=== PATIENT | female | born 1935 | race Caucasian/White ===

== ENCOUNTER → 2016-06-27 | Outpatient (CLI) | payer BC ==
[~2016-06-27] MED LIST: CARV12.5 PO; GLC500 PO; HMLI SC; INSDGI SC; IRBE1TAB48 PO; LEVO88TA PO; SIMV40TA2 PO; TRAM-10 PO; WARF-246 PO
[2016-06-27 10:12] LABS: INR 1.8 (0.9-1.1); PROTHROMBIN TIME (PATIENT) 20.1 SECONDS (9.0-12.0)
[2016-06-27 10:18] LABS: ESTIMATED AVERAGE GLUCOSE 151 mg/dl; HA1C FLAG Normal (Normal)
[2016-06-27 10:21] LABS: BLOOD UREA NITROGEN 17 mg/dl (7-18); BUN/CREATININE RATIO 17.3 (10-20); CALCIUM 8.8 mg/dl (8.5-10.1); CARBON DIOXIDE 29 mmol/L (21-32); CHLORIDE 104 mmol/L (98-107); GLUCOSE 123 mg/dl (70-99); POTASSIUM 4.5 mmol/L (3.5-5.1); SODIUM 141 mmol/L (136-145)
== END ==
LOC: C.LABFOXMH 09:20
PROVIDERS: ATTEND Internal Medicine
DX: E01.8 Other iodine-deficiency related thyroid disorders and allied conditions (principal); E11.9 Type 2 diabetes mellitus without complications

== ENCOUNTER → 2016-07-25 | Outpatient (CLI) | payer BC ==
[2016-07-25 10:05] LABS: INR 2.2 (0.9-1.1); PROTHROMBIN TIME (PATIENT) 24.6 SECONDS (9.0-12.0)
== END | disposition home or self-care (01) ==
LOC: C.LABFOXMH 09:24
PROVIDERS: ATTEND Internal Medicine
DX: Z51.81 Encounter for therapeutic drug level monitoring (principal); Z79.01 Long term (current) use of anticoagulants

== ENCOUNTER → 2016-08-22 | Outpatient (CLI) | payer BC ==
[2016-08-22 09:06] LABS: PROTHROMBIN TIME (PATIENT) 22.6 SECONDS (9.0-12.0)
== END | disposition home or self-care (01) ==
LOC: C.LABFOXMH 08:38
PROVIDERS: ATTEND Internal Medicine
DX: Z79.01 Long term (current) use of anticoagulants (principal)

== ENCOUNTER → 2016-09-19 | Outpatient (CLI) | payer BC ==
[2016-09-19 10:20] LABS: INR 2.1 (0.9-1.1); PROTHROMBIN TIME (PATIENT) 23.3 SECONDS (9.0-12.0)
== END ==
LOC: C.LABFOXMH 09:07
PROVIDERS: ATTEND Internal Medicine
DX: Z79.01 Long term (current) use of anticoagulants (principal)

== ENCOUNTER → 2016-10-17 | Outpatient (CLI) | payer BC ==
[2016-10-17 09:05] LABS: INR 1.5 (0.9-1.1); PROTHROMBIN TIME (PATIENT) 16.2 SECONDS (9.0-12.0)
[2016-10-17 09:52] LABS: ESTIMATED AVERAGE GLUCOSE 154 mg/dl; HA1C FLAG Normal (Normal)
== END | disposition home or self-care (01) ==
LOC: C.LABFOXMH 08:46
PROVIDERS: ATTEND Internal Medicine
DX: E11.9 Type 2 diabetes mellitus without complications (principal); Z79.01 Long term (current) use of anticoagulants

== ENCOUNTER → 2016-10-31 | Outpatient (CLI) | payer BC ==
[2016-10-31 10:38] LABS: INR 2.9 (0.9-1.1); PROTHROMBIN TIME (PATIENT) 32.1 SECONDS (9.0-12.0)
== END | disposition home or self-care (01) ==
LOC: C.LABFOXMH 10:02
PROVIDERS: ATTEND Internal Medicine
DX: Z79.01 Long term (current) use of anticoagulants (principal)

== ENCOUNTER → 2016-11-28 | Outpatient (CLI) | payer BC ==
[2016-11-28 10:38] LABS: INR 1.6 (0.9-1.1); PROTHROMBIN TIME (PATIENT) 17.6 SECONDS (9.0-12.0)
== END | disposition home or self-care (01) ==
LOC: C.LABFOXMH 08:36
PROVIDERS: ATTEND Internal Medicine
DX: Z51.81 Encounter for therapeutic drug level monitoring (principal); Z79.01 Long term (current) use of anticoagulants

== ENCOUNTER → 2016-12-12 | Outpatient (CLI) | payer BC ==
[2016-12-12 11:12] LABS: INR 2.2 (0.9-1.1); PROTHROMBIN TIME (PATIENT) 24.9 SECONDS (9.0-12.0)
== END | disposition home or self-care (01) ==
LOC: C.LABFOXMH 09:15
PROVIDERS: ATTEND Internal Medicine
DX: Z51.81 Encounter for therapeutic drug level monitoring (principal); Z79.01 Long term (current) use of anticoagulants

== ENCOUNTER → 2017-01-09 | Outpatient (CLI) | payer BC ==
[2017-01-09 10:11] LABS: INR 1.7 (0.9-1.1); PROTHROMBIN TIME (PATIENT) 18.4 SECONDS (9.0-12.0)
== END | disposition home or self-care (01) ==
LOC: C.LABFOXMH 09:20
PROVIDERS: ATTEND Internal Medicine
DX: Z51.81 Encounter for therapeutic drug level monitoring (principal); Z79.01 Long term (current) use of anticoagulants

== ENCOUNTER → 2017-01-16 | Outpatient (CLI) | payer BC ==
[2017-01-16 11:32] LABS: INR 2.1 (0.9-1.1); PROTHROMBIN TIME (PATIENT) 23.2 SECONDS (9.0-12.0)
== END | disposition home or self-care (01) ==
LOC: C.LABFOXMH 09:55
PROVIDERS: ATTEND Nurse Practitioner Family
DX: Z79.01 Long term (current) use of anticoagulants (principal)

== ENCOUNTER → 2017-01-25 | Outpatient (CLI) | payer BC ==
[2017-01-25 09:49] LABS: PROTHROMBIN TIME (PATIENT) 10.7 SECONDS (9.0-12.0)
== END | disposition home or self-care (01) ==
LOC: C.LABFOXMH 09:10
PROVIDERS: ATTEND Nurse Practitioner Family
DX: Z51.81 Encounter for therapeutic drug level monitoring (principal); Z79.01 Long term (current) use of anticoagulants

== ENCOUNTER → 2017-01-29 | Outpatient (CLI) | payer BC ==
[2017-01-29 09:02] LABS: INR 1.2 (0.9-1.1); PROTHROMBIN TIME (PATIENT) 12.4 SECONDS (9.0-12.0)
== END | disposition home or self-care (01) ==
LOC: C.LABFOXMH 08:32
PROVIDERS: ATTEND Nurse Practitioner Family
DX: Z79.01 Long term (current) use of anticoagulants (principal)

== ENCOUNTER → 2017-02-05 | Outpatient (CLI) | payer BC ==
[2017-02-05 10:44] LABS: PROTHROMBIN TIME (PATIENT) 33.2 SECONDS (9.0-12.0)
== END | disposition home or self-care (01) ==
LOC: C.LABFOXMH 09:46
PROVIDERS: ATTEND Internal Medicine Hospice and Palliative Medicine
DX: Z79.01 Long term (current) use of anticoagulants (principal)

== ENCOUNTER → 2017-02-20 | Outpatient (CLI) | payer BC ==
[2017-02-20 10:06] LABS: INR 2.7 (0.9-1.1)
== END | disposition home or self-care (01) ==
LOC: C.LABFOXMH 09:26
PROVIDERS: ATTEND Internal Medicine Hospice and Palliative Medicine
DX: Z51.81 Encounter for therapeutic drug level monitoring (principal); Z79.01 Long term (current) use of anticoagulants

== ENCOUNTER → 2017-03-13 | Outpatient (CLI) | payer BC ==
[2017-03-13 09:16] LABS: INR 2.3 (0.9-1.1)
== END | disposition home or self-care (01) ==
LOC: C.LABFOXMH 08:39
PROVIDERS: ATTEND Nurse Practitioner Family
DX: Z51.81 Encounter for therapeutic drug level monitoring (principal); Z79.01 Long term (current) use of anticoagulants

== ENCOUNTER → 2017-04-03 | Outpatient (CLI) | payer BC ==
[2017-04-03 11:01] LABS: INR 2.6 (0.9-1.1); PROTHROMBIN TIME (PATIENT) 29.2 SECONDS (9.0-12.0)
[2017-04-03 11:11] LABS: BLOOD UREA NITROGEN 16 mg/dl (7-18); BUN/CREATININE RATIO 15.7 (10-20); CARBON DIOXIDE 26 mmol/L (21-32); CHLORIDE 107 mmol/L (98-107); CREATININE 1.03 mg/dl (0.60-1.20); GLUCOSE 130 mg/dl (70-99); POTASSIUM 4.9 mmol/L (3.5-5.1); SODIUM 140 mmol/L (136-145)
[2017-04-03 11:13] LABS: CHOLESTEROL 176 mg/dl (0-200); CHOLESTEROL/HDL RATIO 4.8; HDL CHOLESTEROL 37 mg/dl; TRIGLYCERIDES 452 mg/dl (0-150)
[2017-04-03 11:19] LABS: ESTIMATED AVERAGE GLUCOSE 140 mg/dl; HA1C FLAG Normal (Normal)
== END | disposition home or self-care (01) ==
LOC: C.LABFOXMH 10:36
PROVIDERS: ATTEND Internal Medicine
DX: Z51.81 Encounter for therapeutic drug level monitoring (principal); Z79.01 Long term (current) use of anticoagulants; E11.9 Type 2 diabetes mellitus without complications; I10 Essential (primary) hypertension; E78.5 Hyperlipidemia, unspecified

== ENCOUNTER → 2017-05-11 | Outpatient (CLI) | payer BC ==
--- NOTE | 2017-05-14 07:49 | MAMMOGRAPHY REPORT ---
BILATERAL DIGITAL SCREENING MAMMOGRAM TOMOSYNTHESIS WITH CAD: 05/11/2017 CLINICAL HISTORY: Routine screening. Patient has no complaints. TECHNIQUE: Breast tomosynthesis in addition to standard 2D mammography was performed. Current study was also evaluated with a Computer Aided Detection (CAD) system. COMPARISON: Comparison is made to exams dated: 10/01/2015 mammogram, 09/20/2015 mammogram, 09/18/2013 shey mogram, 09/16/2012 mammogram, 03/22/2011 mammogram - [facility], and 01/04/2009. BREAST COMPOSITION: There are scattered areas of fibroglandular density in both breasts. FINDINGS: There are moderate vascular calcifications and stable benign punctate and rim calcification s in the breasts. No new suspicious mass, architectural distortion or cluster of microcalcifications is seen. IMPRESSION: ACR BI-RADS CATEGORY 1: NEGATIVE There is no mammographic evidence of malignancy. A 1 year screening mammogram is recommended. The pa tient will receive written notification of the results. Approximately 10% of breast cancers are not detected with mammography. A negative mammographic report should not delay biopsy if a clinically suggestive mass is present. Mitra Reagan M.D. ay/:05/12/2017 08:21:24 Primary Care Coordinator: Fifi PEREZ(R)(M), [facility] letter sent: Normal 1/2 BI-RADS Code: ACR BI-RADS Category 1: Negative
== END | disposition home or self-care (01) ==
LOC: C.MAMM 08:26
PROVIDERS: ATTEND Internal Medicine
DX: Z12.31 Encounter for screening mammogram for malignant neoplasm of breast (principal)

== ENCOUNTER → 2017-05-15 | Outpatient (CLI) | payer BC ==
[2017-05-15 09:29] LABS: INR 2.3 (0.9-1.1); PROTHROMBIN TIME (PATIENT) 25.4 SECONDS (9.0-12.0)
== END | disposition home or self-care (01) ==
LOC: C.LABFOXMH 08:59
PROVIDERS: ATTEND Internal Medicine
DX: Z79.01 Long term (current) use of anticoagulants (principal)

== ENCOUNTER → 2017-06-12 | Outpatient (CLI) | payer BC ==
[2017-06-12 08:57] LABS: INR 2.1 (0.9-1.1)
== END | disposition home or self-care (01) ==
LOC: C.LABFOXMH 08:10
PROVIDERS: ATTEND Internal Medicine
DX: Z51.81 Encounter for therapeutic drug level monitoring (principal); Z79.01 Long term (current) use of anticoagulants

== ENCOUNTER → 2017-07-10 | Outpatient (CLI) | payer BC ==
[2017-07-10 08:54] LABS: INR 1.9 (0.9-1.1)
== END | disposition home or self-care (01) ==
LOC: C.LABFOXMH 08:21
PROVIDERS: ATTEND Internal Medicine
DX: Z51.81 Encounter for therapeutic drug level monitoring (principal); Z79.01 Long term (current) use of anticoagulants

== ENCOUNTER → 2017-08-07 | Outpatient (CLI) | payer BC ==
[2017-08-07 09:03] LABS: HEMOGLOBIN A1C 6.9 % (4.5-5.6)
[2017-08-07 09:07] LABS: BLOOD UREA NITROGEN 12 mg/dl (7-18); CALCIUM 9.2 mg/dl (8.5-10.1); CARBON DIOXIDE 26 mmol/L (21-32); CHOLESTEROL 194 mg/dl (0-200); CREATININE 1.02 mg/dl (0.60-1.20); GLUCOSE 181 mg/dl (70-99); INR 1.6 (0.9-1.1); POTASSIUM 4.8 mmol/L (3.5-5.1); SODIUM 138 mmol/L (136-145)
[2017-08-07 09:17] LABS: LDL CHOLESTEROL CALCULATED 88 mg/dl
== END | disposition home or self-care (01) ==
LOC: C.LABFOXMH 08:34
PROVIDERS: ATTEND Internal Medicine
DX: Z51.81 Encounter for therapeutic drug level monitoring (principal); Z79.01 Long term (current) use of anticoagulants; E11.9 Type 2 diabetes mellitus without complications; E78.00 Pure hypercholesterolemia, unspecified; E03.9 Hypothyroidism, unspecified

== ENCOUNTER → 2017-08-28 | Outpatient (CLI) | payer BC ==
[2017-08-28 09:31] LABS: INR 1.9 (0.9-1.1)
== END | disposition home or self-care (01) ==
LOC: C.LABFOXMH 09:02
PROVIDERS: ATTEND Internal Medicine
DX: Z79.01 Long term (current) use of anticoagulants (principal)

== ENCOUNTER → 2017-09-25 | Outpatient (CLI) | payer BC ==
[2017-09-25 08:15] LABS: INR 1.3 (0.9-1.1)
== END | disposition home or self-care (01) ==
LOC: C.LABFOXMH 07:55
PROVIDERS: ATTEND Internal Medicine
DX: Z79.01 Long term (current) use of anticoagulants (principal)

== ENCOUNTER → 2017-10-09 | Outpatient (CLI) | payer BC ==
[2017-10-09 08:55] LABS: INR 2.4 (0.9-1.1)
== END | disposition home or self-care (01) ==
LOC: C.LABFOXMH 08:18
PROVIDERS: ATTEND Internal Medicine
DX: Z79.01 Long term (current) use of anticoagulants (principal)

== ENCOUNTER → 2017-11-06 | Outpatient (CLI) | payer BC ==
[2017-11-06 08:58] LABS: INR 1.2 (0.9-1.1)
== END ==
LOC: C.LABFOXMH 08:23
PROVIDERS: ATTEND Internal Medicine
DX: Z51.81 Encounter for therapeutic drug level monitoring (principal); Z79.01 Long term (current) use of anticoagulants

== ENCOUNTER → 2018-01-29 | Outpatient (CLI) | payer BC ==
[2018-01-29 10:09] LABS: INR 3.1 (0.9-1.1)
== END ==
LOC: C.LABFOXMH 09:09
PROVIDERS: ATTEND Internal Medicine
DX: Z79.01 Long term (current) use of anticoagulants (principal)

== ENCOUNTER 2019-04-21 10:38 | Inpatient (IN) ==
[2019-04-21 10:52] LABS: Basophils # (auto) 0.05 K/uL (0-0.2); Eosinophils # (auto) 0.23 K/uL (0-0.5); Eosinophils % (auto) 4.6 %; Hematocrit (blood only) 38.8 % (37-47); Hemoglobin 12.5 g/dL (12.0-16.0); Immature Granulocytes # (auto) 0.03 K/uL (0.00-0.02); Immature Granulocytes % (auto) 0.6 %; Lymphocytes # (auto) 1.28 K/uL (1.2-3.4); Lymphocytes % (auto) 25.7 %; Mean Corpuscular Hemoglobin 30.3 pg (25-34); Mean Corpuscular Hgb Conc 32.2 g/dL (32-36); Mean Corpuscular Volume 94.2 fL (80-100); Mean Platelet Volume 9.2 fL (7.4-10.4); Monocytes # (auto) 0.39 K/uL (0.11-0.59); Monocytes % (auto) 7.8 %; Neutrophils % (auto) 60.3 %; Platelet Count 171 K/uL (130-400); RDW Coefficient of Variation 13.5 % (11.5-14.5); RDW Standard Deviation 46.6 fL (36.4-46.3); Red Blood Count 4.12 M/uL (4.2-5.4); White Blood Count 4.98 K/uL (4.8-10.8)
[2019-04-21 11:10] LABS: Alanine Aminotransferase 32 U/L (12-78); Albumin Level 3.4 gm/dl (3.4-5.0); Aspartate Aminotransferase 20 U/L (15-37); BUN Creatinine Ratio 15.2 (10-20); Blood Urea Nitrogen 17 mg/dl (7-18); Calcium 8.5 mg/dl (8.5-10.1); Carbon Dioxide 25 mmol/L (21-32); Chloride 102 mmol/L (98-107); Est GFR (African American) 50.8; Est GFR (Non-African American) 43.8; Glucose 188 mg/dl (70-99); Lipase 131 U/L (73-393); Potassium 4.4 mmol/L (3.5-5.1); Sodium 134 mmol/L (136-145)
[2019-04-21 11:15] LABS: Albumin Globulin Ratio 0.9 (0.9-2); Alkaline Phosphatase 47 U/L (45-117); Bilirubin,Total 0.4 mg/dl (0.2-1); Globulin 3.7 gm/dl (2.5-4.0); Total Protein 7.1 gm/dl (6.4-8.2); Troponin I < 0.015 ng/ml (0-0.045)
--- NOTE | 2019-04-21 11:15 | XRay Report ---
XR chest 1V portable CLINICAL HISTORY: Atypical chest pain COMPARISON STUDY: Chest x-ray dated 10/12/2013 FINDINGS: The cardiac and mediastinal contours are normal. There is no evidence of focal pulmonary co nsolidation. There is no evidence of failure. No pleural effusions are visualized.[ IMPRESSION: No active disease in the chest. Electronically signed by: Elton Norris M.D. 04/21/2019 11:14 AM
[2019-04-21 11:41] LABS: INR 2.2 (0.9-1.1); Prothrombin Time 21.4 Seconds (9.0-12.0)
[2019-04-21] MEDS ORDERED: CARBOHYDRATES FOR HYPOGLYCEMIA PO PRN (15:05)
[2019-04-21] MEDS ORDERED: DEXTROSE 50% 50 ML SYRINGE IV PRN (15:05)
[2019-04-21] MEDS ORDERED: NITROGLYCERIN SL 0.4 MG/TAB TAB SL PRN (15:05)
[2019-04-21] MEDS ORDERED: GLUCOSE 40% GEL 15 GM TUBE PO PRN (15:05)
[2019-04-21] MEDS ORDERED: GLUCAGON FOR INJ 1 MG VIAL SQ PRN (15:05)
[2019-04-21] MEDS ORDERED: GLUCOSE 10 TABS/TUBE PO PRN (15:05)
[2019-04-21 15:51] LABS: Phosphorus 2.9 mg/dl (2.5-4.9)
--- NOTE | 2019-04-21 16:11 | Emergency Department Note ---
Entered by Van Lemus acting as a scribe for Nemesio Avila DO History of Present Illness General Chief complaint: Chest Pain Source: patient History of Present Illness Onset (ago): week(s) (3) Location: chest Pain Consistency: + intermittent Maximum Pain Intensity: 0 Quality: + other (chest pain ) Relieved By: + rest Exacerbated By: + other (exertion) Associated symptoms: + shortness of breath (slight) and + other (+throat pain) The patient is an 84 year old female, with past medical history of PE, diabetes, pancreatitis, who presents to the Emergency Room with complaints of intermittent chest pain over the past 3 weeks. The patient states that exertion makes the chest pain worse, which she states has caused her to lessen the amount she exerts over the last few weeks. The patient states that resting helps resolve the symptoms. The patient also notes of slight shortness of breath and throat pain. The patient notes the chest pain has completely resolved currently after receiving aspirin and nitroglycerin. The patient states she has an echocardiogram scheduled in 3 days. No other exacerbating or remitting factors. Home Medications Home Medications Medication Instructions Recorded Confirmed Type acetaminophen [Tylenol Arthritis 650 mg PO BID 04/21/19 04/21/19 History Pain] amlodipine 5 mg PO QAM 04/21/19 04/21/19 History carvedilol 25 mg PO BID 04/21/19 04/21/19 History insulin aspart U-100 [Novolog 0 unit SUBCUT QID 04/21/19 04/21/19 History Flexpen U-100 Insulin] insulin glargine [Lantus Solostar 38 unit SUBCUT BID 04/21/19 04/21/19 History U-100 Insulin] irbesartan 300 mg PO HS 04/21/19 04/21/19 History levothyroxine 88 mcg PO QAM 04/21/19 04/21/19 History metformin 1,000 mg PO BID 04/21/19 04/21/19 History simvastatin 40 mg PO QDD 04/21/19 04/21/19 History tramadol 50 mg PO BID 04/21/19 04/21/19 History warfarin 5 mg PO HS 04/21/19 04/21/19 History Allergies Allergy/AdvReac Type Severity Reaction Status Date / Time Cipro Allergy Severe NAUSEA Unverified 09/22/16 12:18 ciprofloxacin Allergy Severe NAUSEA Unverified 04/21/19 13:07 metronidazole Allergy Severe NAUSEA Unverified 04/21/19 13:07 clavulanic acid Allergy Unknown sick Verified 04/21/19 13:07 latex Allergy Unknown rash Verified 04/21/19 13:07 Past Med/Surg History Medical History Diabetes (Acute) PE (pulmonary embolism) (Chronic) Diabetes (Chronic) Pancreatitis (Acute) Family History Other No significant family history Social History Preferred Language: Chinese Communication Ability: Effective Seam Taper Machine Required: No Beliefs That Will Affect Care: None Current Living Situation: Personal Care Facility Current Living Situation Comment: [facility] Other Information That Helps Us Care for You: No Feels Safe at Home: Yes Safety Concerns: Feels Safe At This Time Smoking Status: Former smoker Hx Alcohol Use: Yes Alcohol type: wine Hx Substance Use: No Review of Systems See HPI for pertinent positives & negatives. and A total of 10 systems reviewed and were otherwise negative Physical Exam Vital Signs Vital Signs - 24 hr 04/21/19 10:45 04/21/19 10:50 04/21/19 12:34 Temperature 37.3 C Temperature Source Oral Sepsis Recent Fever Within 48 Hours No Sepsis New/Unexplained Change in Mental Status No Sepsis Action Taken by Nursing No Action Required Pulse Rate 73 69 Pulse Rate [Apical] 66 Pulse Rhythm Regular Regular Pulse Rhythm [Apical] Regular Pulse Strength Normal Respiratory Rate 20 19 17 Respiratory Effort / Characteristics Non-Labored Spontaneous Non-Labored Spontaneous Respiratory Depth Normal Normal Respiratory Pattern Regular Regular Blood Pressure 139/75 Blood Pressure [Right Arm] 170/84 H Blood Pressure Mean 96 Blood Pressure Mean [Right Arm] 112 Pulse Oximetry 96 98 Oxygen Delivery Method Room Air Room Air GENERAL: well-appearing for age, sitting up in bed, wearing hospital gown, no acute distress, non-toxic EYE EXAM: normal conjunctiva OROPHARYNX: no exudate, no erythema, lips, buccal mucosa, and tongue normal and mucous membranes are moist NECK: supple, no nuchal rigidity, no adenopathy, non-tender LUNGS: Clear to auscultation. Normal chest wall mechanics HEART: no murmurs, S1 normal and S2 normal ABDOMEN: abdomen soft, non-tender, normo-active bowel sounds, no masses, no rebound or guarding. BACK: Back is symmetrical on inspection and there is no deformity, no midline tenderness, no CVA tenderness. SKIN: no rashes and no bruising UPPER EXTREMITIES: upper extremities are grossly normal. LOWER EXTREMITIES: Calves are equal bilaterally with mild pitting edema. NEURO EXAM: Normal sensorium, cranial nerves II-XII grossly intact, normal spe ech, no gross weakness of arms, no gross weakness of legs. Course ED COURSE: Vital signs were reviewed and showed hypertensive. The patients medical record was reviewed The above diagnostic studies were performed and reviewed. ED treatments and interventions as stated above. 1047: The patient was evaluated in room A2. A complete history and physical examination was performed. 1158: I reviewed the patient's case with Dr. Nuria Richardson. Dr. Mosqueda will evaluate the patient for further management. Based on the patients age, coexisting illnesses, exam and lab findings the decision to treat as an inpatient was made. The patient remained stable while under my care. The patient will be evaluated for further management. Reevaluation(s) Reevaluation #1: I reviewed the patient's case with Dr. Nurai Richardson. Dr. Mosqueda will evaluate the patient for further management. Time: 11:58 Medical Decision Making Differential Diagnosis Differential diagnoses includes but is not limited to acute coronary syndrome, myocardial infarction, pericarditis, pulmonary embolus, aortic dissection, pneumonia, pneumothorax, musculoskeletal, shingles, esophageal. Medical Records Attestation: I reviewed the patient's medical records. Home Medications Current Medication List: was personally reviewed by me Laboratory Data Attestation: I reviewed the patient's lab results. Result diagrams: 04/21/19 10:40 04/21/19 10:40 Lab Results 04/21/19 04/21/19 04/21/19 Range/Units 10:40 10:40 10:40 WBC 4.98 (4.8-10.8) K/uL RBC 4.12 L (4.2-5.4) M/uL Hgb 12.5 (12.0-16.0) g/dL Hct 38.8 (37-47) % MCV 94.2 (80-100) fL MCH 30.3 (25-34) pg MCHC 32.2 (32-36) g/dL RDW Std Deviation 46.6 H (36.4-46.3) fL RDW Coeff of Orestes 13.5 (11.5-14.5) % Plt Count 171 (130-400) K/uL MPV 9.2 (7.4-10.4) fL Immature Gran % (Auto) 0.6 % Neut % (Auto) 60.3 % Lymph % (Auto) 25.7 % [place] % (Auto) 7.8 % Eos % (Auto) 4.6 % Baso % (Auto) 1.0 % Immature Gran # (Auto) 0.03 H (0.00-0.02) K/uL Neut # (Auto) 3.00 (1.4-6.5) K/uL Lymph # (Auto) 1.28 (1.2-3.4) K/uL [place] # (Auto) 0.39 (0.11-0.59) K/uL Eos # (Auto) 0.23 (0-0.5) K/uL Baso # (Auto) 0.05 (0-0.2) K/uL PT 21.4 H (9.0-12.0) Seconds INR 2.2 H (0.9-1.1) Sodium 134 L (136-145) mmol/L Potassium 4.4 (3.5-5.1) mmol/L Chloride 102 (98-107) mmol/L Carbon Dioxide 25 (21-32) mmol/L Anion Gap 7.0 (3-11) BUN 17 (7-18) mg/dl Creatinine 1.14 (0.6-1.2) mg/dl Est Cr Clr Drug Dosing 39.0 ml/min Est GFR ( Amer) 50.8 Est GFR (Non-Af Amer) 43.8 BUN/Creatinine Ratio 15.2 (10-20) Glucose 188 H (70-99) mg/dl Calcium 8.5 (8.5-10.1) mg/dl Phosphorus (2.5-4.9) mg/dl Magnesium (1.8-2.4) mg/dl Total Bilirubin 0.4 (0.2-1) mg/dl AST 20 (15-37) U/L ALT 32 (12-78) U/L Alkaline Phosphatase 47 (45-117) U/L Troponin I < 0.015 (0-0.045) ng/ml Total Protein 7.1 (6.4-8.2) gm/dl Albumin 3.4 (3.4-5.0) gm/dl Globulin 3.7 (2.5-4.0) gm/dl Albumin/Globulin Ratio 0.9 (0.9-2) Lipase 131 (73-393) U/L 04/21/19 Range/Units 10:40 WBC (4.8-10.8) K/uL RBC (4.2-5.4) M/uL Hgb (12.0-16.0) g/dL Hct (37-47) % MCV (80-100) fL MCH (25-34) pg MCHC (32-36) g/dL RDW Std Deviation (36.4-46.3) fL RDW Coeff of Orestes (11.5-14.5) % Plt Count (130-400) K/uL MPV (7.4-10.4) fL Immature Gran % (Auto) % Neut % (Auto) % Lymph % (Auto) % [place] % (Auto) % Eos % (Auto) % Baso % (Auto) % Immature Gran # (Auto) (0.00-0.02) K/uL Neut # (Auto) (1.4-6.5) K/uL Lymph # (Auto) (1.2-3.4) K/uL [place] # (Auto) (0.11-0.59) K/uL Eos # (Auto) (0-0.5) K/uL Baso # (Auto) (0-0.2) K/uL PT (9.0-12.0) Seconds INR (0.9-1.1) Sodium (136-145) mmol/L Potassium (3.5-5.1) mmol/L Chloride (98-107) mmol/L Carbon Dioxide (21-32) mmol/L Anion Gap (3-11) BUN (7-18) mg/dl Creatinine (0.6-1.2) mg/dl Est Cr Clr Drug Dosing ml/min Est GFR ( Amer) Est GFR (Non-Af Amer) BUN/Creatinine Ratio (10-20) Glucose (70-99) mg/dl Calcium (8.5-10.1) mg/dl Phosphorus 2.9 (2.5-4.9) mg/dl Magnesium 2.0 (1.8-2.4) mg/dl Total Bilirubin (0.2-1) mg/dl AST (15-37) U/L ALT (12-78) U/L Alkaline Phosphatase (45-117) U/L Troponin I (0-0.045) ng/ml Total Protein (6.4-8.2) gm/dl Albumin (3.4-5.0) gm/dl Globulin (2.5-4.0) gm/dl Albumin/Globulin Ratio (0.9-2) Lipase (73-393) U/L Imaging Data Radiologist's Impression: Radiology results as stated below per my review and the radiologist's interpretation: XR chest 1V portable CLINICAL HISTORY: Atypical chest pain COMPARISON STUDY: Chest x-ray dated 10/12/2013 FINDINGS: The cardiac and mediastinal contours are normal. There is no evidence of focal pulmonary consolidation. There is no evidence of failure. No pleural effusions are visualized.[ IMPRESSION: No active disease in the chest. Electronically signed by: Elton Norris M.D. 04/21/2019 11:14 AM ECG Data Attestation: I personally reviewed and interpreted this ECG as follows: Indication: + chest pain Rate (beats per minute): 68 Rhythm: + sinus rhythm ECG Intervals/blocks: + Normal QT ECG [place]: + Normal ECG ST segments: + ST depression (inferior) Comparison ECG Date: from (10/18/13) Change: the following changes noted (Sligthly worse depression ) Blood Pressure Blood Pressure Findings: Elevated blood pressure Blood Pressure Disposition: further management by hospitalist YUE Wade Patient is an 84-year-old female with a past medical history of hypertension, hyperlipidemia and diabetes who presents the ER for exertional chest pain shortness of breath and throat pain which is been worsening over the past 3 weeks. Patient was hypertensive. She is brought in by EMS and was given a spirin and nitro and had resolution of her pain. EKG shows some worsening ST changes in the inferior leads. Troponin was negative. BMP along with CBC was remarkable for a sodium of 134. INR was therapeutic at 2.2. Glucose was slightly elevated 188. Patient was updated bedside. Chest x-ray without focal infiltrate. Patient was admitted for further work-up. Patient and were updated bedside and hospitalist were updated. Impression & Plan Chest pain, exertional, Breath shortness, Abnormal ECG Discharge Plan Visit Data *Final* Discharge Date/Time: 04/21/19 14:52 Chief Complaint: Chest Pain ED Provider: Nemesio Avila Discharge Problem: Chest pain, exertional, Breath shortness, Abnormal ECG Patient Disposition: Admitted As Inpatient Discharge Instructions Interventions: ED Discharge Assessment Last Done: 04/21/19 14:52 The scribe's documentation has been prepared under my direction and personally reviewed by me in its entirety. I confirm that the note above accurately reflects all work, treatment, procedures, and medical decision making performed by me.
[2019-04-21] MEDS: SIMVASTATIN 40 MG TAB PO SCH (16:24)
--- NOTE | 2019-04-21 19:32 | History & Physical Report ---
Date of Service April 21, 2019 Assessment & Plan (1) Chest pain, exertional: Patient with three weeks of exertional chest discomfort, relieved with rest. Pain increasing in severity and intensity over the last three weeks. No pain at rest. Troponin x 2 negative, EKG with stable changes. Patient with history of HTN, DM. No known CAD. Suspect angina as source of chest discomfort. She is high risk by HEART score. -ASA 81mg po daily -Continue Simvastatin 40mg po daily -Continue Carvedilol 25mg po BID -Continue Irbesartan -Cardiology consultation appreciated -NPO after midnight tonight for possible cath tomorrow Present on Admission?: Yes (2) Diabetes: Patient with DM-II, well controlled on home medications. Last AIC 04/11/19 = 6.9. Patient is to take Lantus 38u BID - she reports some low blood sugars in the morning. States that she does not take her evening Lantus appx 50% of the time. -Lantus 15u BID -ISS -Adjust as needed to maintain blood sugar 100 - 140 -Hold Metformin Present on Admission?: Yes (3) Hypertension: Blood pressure elevated at 177/87. Asymptomatic -Continue Irbesartan -Continue Carvedilol -Labetalol 10mg IV q 4 hours as needed -Continue to monitor Present on Admission?: Yes (4) Hypothyroid: Chronic. TSH=0.765 on 04/11/19 -Continue Synthroid Present on Admission?: Yes (5) PE (pulmonary embolism): Patient with history of bilateral PE in 1999. Presently on Coumadin therapy. Subtherapeutic INR = 2.2 today. She denies CP, SOB -Hold Coumadin for now for possible cath -INR in AM F/E/N - Heplock. Monitor electrolytes and replete as needed. NPO after midnight Ppx - Coumadin Code - Full Dispo - Observation to PCU Present on Admission?: Yes History of Present Illness Chief Complaint: chest pain Primary Care Provider: [facility] Laura Allen is an 84yo C female with history of HTN, DM, PE in the past on Coumadin anticoagulation presenting with chest pain. Her chest discomfort began 3 weeks ago - she noted a substernal and upper chest heaviness which occurred intermittently with exertion and was relieved within moments of rest. She saw her PCP regarding this complaint and an echocardiogram was ordered - not yet completed, scheduled for this . Last week she noted that the heaviness was increasing in frequency and becoming more intense. She woke this morning and was getting ready to go to bible study at [facility] - she was walking down the hill to where the bible study was being held and she began to develop severe chest heaviness, progressed to pain radiating into her neck with associated SOB. She denies dizziness/diaphoresis/LOC. She was seen immediately by Dr. George and had an EKG which suggested some ST changes suggestive of ischemia. She received 324mg of ASA and was subsequently sent to the ER for further workup. Patient with no recent history of CP prior to 3 weeks ago. She is fairly active and walks a lot. She has had stress testing in the past which was negative by patient report. No prior cardiac catheterizations. No known CAD, stents, CHF or arrhythmia. Additionally patient denies fevers/chills/SOB/cough/nausea/vomiting/abdominal pain/diarrhea or constipation. No additional complaints at this time. Patient presently with no chest heaviness or discomfort. No palpitations or SOB. Allergies Allergy/AdvReac Type Severity Reaction Status Date / Time Cipro Allergy Severe NAUSEA Unverified 03/09/16 12:18 lisinopril Allergy Mild Unknown Verified 04/21/19 20:08 latex Allergy Unknown rash Verified 04/21/19 13:07 ciprofloxacin AdvReac Severe NAUSEA Unverified 04/21/19 20:08 metronidazole AdvReac Severe NAUSEA Unverified 04/21/19 20:08 clavulanic acid AdvReac Unknown sick Verified 04/21/19 20:08 Home Medications Home Medications Medication Instructions Recorded Confirmed Type acetaminophen [Tylenol Arthritis 650 mg PO BID 04/21/19 04/21/19 History Pain] amlodipine 5 mg PO QAM 04/21/19 04/21/19 History carvedilol 25 mg PO BID 04/21/19 04/21/19 History insulin aspart U-100 [Novolog 0 unit SUBCUT QID 04/21/19 04/21/19 History Flexpen U-100 Insulin] insulin glargine [Lantus Solostar 38 unit SUBCUT BID 04/21/19 04/21/19 History U-100 Insulin] irbesartan 300 mg PO HS 04/21/19 04/21/19 History levothyroxine 88 mcg PO QAM 04/21/19 04/21/19 History metformin 1,000 mg PO BID 04/21/19 04/21/19 History simvastatin 40 mg PO QDD 04/21/19 04/21/19 History tramadol 50 mg PO BID 04/21/19 04/21/19 History warfarin 5 mg PO HS 04/21/19 04/21/19 History Past Med/Surg History Medical History Diabetes (Acute) PE (pulmonary embolism) (Chronic) 1999 Hypertension Hypothyroid Surgical History History of cholecystectomy History of tonsillectomy Family History Other No significant family history Social History Preferred Language: Swedish Communication Ability: Effective Adult Family Home Program Manager Required: No Beliefs That Will Affect Care: None Current Living Situation: Personal Care Facility Current Living Situation Comment: [facility] Other Information That Helps Us Care for You: No Feels Safe at Home: Yes Safety Concerns: Feels Safe At This Time Smoking Status: Former smoker Hx Alcohol Use: Yes Alcohol type: wine Hx Substance Use: No Review of Systems Review of Systems: All systems reviewed & are unremarkable except as noted in HPI & below Physical Exam Physical Exam: General: patient resting comfortably, NAD, non-toxic in appearance, AA&O to self Skin: warm, dry, intact, no rashes or lesions HEENT: NC/AT, PERRL, EOMI, anicteric sclera, conjunctiva without injection, external ear normal to inspection and nontender, nares patent, moist mucus membranes, dentition intact, no oropharyngeal lesions, neck supple, trachea midline, no LAD, no thyromegaly, no JVD Heart: +S1/S2, regular, no m/r/g Lungs: equal air entry bilaterally, no rales/rhonchi/wheezes Abd: +BS, soft, NT/ND, no masses/organomegaly/ascites Ext: warm, 2+ pulses in UE/LE bilaterally, no clubbing/cyanosis or edema Neuro: nonfocal, patient AA&O to self, speech intact, no facial droop, moving all extremities on command with equal strength 5/5 Results & Data Vital Signs (Past 12 Hours) Vital Signs Temp Pulse Pulse Resp BP BP Pulse Ox 04/21/19 15:18 80 04/21/19 15:08 36.6 C 70 18 185/75 H 94 04/21/19 14:52 65 18 180/74 H 98 04/21/19 14:21 74 17 184/87 H 99 04/21/19 12:34 66 17 170/84 H 04/21/19 10:50 69 19 98 04/21/19 10:45 37.3 C 73 20 139/75 96 Laboratory Results Lab Results 04/21/19 04/21/19 04/21/19 Range/Units 10:40 10:40 10:40 WBC 4.98 (4.8-10.8) K/uL RBC 4.12 L (4.2-5.4) M/uL Hgb 12.5 (12.0-16.0) g/dL Hct 38.8 (37-47) % MCV 94.2 (80-100) fL MCH 30.3 (25-34) pg MCHC 32.2 (32-36) g/dL RDW Std Deviation 46.6 H (36.4-46.3) fL RDW Coeff of Orestes 13.5 (11.5-14.5) % Plt Count 171 (130-400) K/uL MPV 9.2 (7.4-10.4) fL Immature Gran % (Auto) 0.6 % Neut % (Auto) 60.3 % Lymph % (Auto) 25.7 % [place] % (Auto) 7.8 % Eos % (Auto) 4.6 % Baso % (Auto) 1.0 % Immature Gran # (Auto) 0.03 H (0.00-0.02) K/uL Neut # (Auto) 3.00 (1.4-6.5) K/uL Lymph # (Auto) 1.28 (1.2-3.4) K/uL [place] # (Auto) 0.39 (0.11-0.59) K/uL Eos # (Auto) 0.23 (0-0.5) K/uL Baso # (Auto) 0.05 (0-0.2) K/uL PT 21.4 H (9.0-12.0) Seconds INR 2.2 H (0.9-1.1) Sodium 134 L (136-145) mmol/L Potassium 4.4 (3.5-5.1) mmol/L Chloride 102 (98-107) mmol/L Carbon Dioxide 25 (21-32) mmol/L Anion Gap 7.0 (3-11) BUN 17 (7-18) mg/dl Creatinine 1.14 (0.6-1.2) mg/dl Est Cr Clr Drug Dosing 39.0 ml/min Est GFR ( Amer) 50.8 Est GFR (Non-Af Amer) 43.8 BUN/Creatinine Ratio 15.2 (10-20) Glucose 188 H (70-99) mg/dl POC Glucose (70-99) Calcium 8.5 (8.5-10.1) mg/dl Phosphorus (2.5-4.9) mg/dl Magnesium (1.8-2.4) mg/dl Total Bilirubin 0.4 (0.2-1) mg/dl AST 20 (15-37) U/L ALT 32 (12-78) U/L Alkaline Phosphatase 47 (45-117) U/L Troponin I < 0.015 (0-0.045) ng/ml Total Protein 7.1 (6.4-8.2) gm/dl Albumin 3.4 (3.4-5.0) gm/dl Globulin 3.7 (2.5-4.0) gm/dl Albumin/Globulin Ratio 0.9 (0.9-2) Lipase 131 (73-393) U/L 04/21/19 04/21/19 04/21/19 Range/Units 10:40 15:13 18:06 WBC (4.8-10.8) K/uL RBC (4.2-5.4) M/uL Hgb (12.0-16.0) g/dL Hct (37-47) % MCV (80-100) fL MCH (25-34) pg MCHC (32-36) g/dL RDW Std Deviation (36.4-46.3) fL RDW Coeff of Orestes (11.5-14.5) % Plt Count (130-400) K/uL MPV (7.4-10.4) fL Immature Gran % (Auto) % Neut % (Auto) % Lymph % (Auto) % [place] % (Auto) % Eos % (Auto) % Baso % (Auto) % Immature Gran # (Auto) (0.00-0.02) K/uL Neut # (Auto) (1.4-6.5) K/uL Lymph # (Auto) (1.2-3.4) K/uL [place] # (Auto) (0.11-0.59) K/uL Eos # (Auto) (0-0.5) K/uL Baso # (Auto) (0-0.2) K/uL PT (9.0-12.0) Seconds INR (0.9-1.1) Sodium (136-145) mmol/L Potassium (3.5-5.1) mmol/L Chloride (98-107) mmol/L Carbon Dioxide (21-32) mmol/L Anion Gap (3-11) BUN (7-18) mg/dl Creatinine (0.6-1.2) mg/dl Est Cr Clr Drug Dosing ml/min Est GFR ( Amer) Est GFR (Non-Af Amer) BUN/Creatinine Ratio (10-20) Glucose (70-99) mg/dl POC Glucose 105 H (70-99) Calcium (8.5-10.1) mg/dl Phosphorus 2.9 (2.5-4.9) mg/dl Magnesium 2.0 (1.8-2.4) mg/dl Total Bilirubin (0.2-1) mg/dl AST (15-37) U/L ALT (12-78) U/L Alkaline Phosphatase (45-117) U/L Troponin I < 0.015 (0-0.045) ng/ml Total Protein (6.4-8.2) gm/dl Albumin (3.4-5.0) gm/dl Globulin (2.5-4.0) gm/dl Albumin/Globulin Ratio (0.9-2) Lipase (73-393) U/L Diagnostic Findings XR chest 1V portable CLINICAL HISTORY: Atypical chest pain COMPARISON STUDY: Chest x-ray dated 10/12/2013 FINDINGS: The cardiac and mediastinal contours are normal. There is no evidence of focal pulmonary consolidation. There is no evidence of failure. No pleural effusions are visualized.[ IMPRESSION: No active disease in the chest. Electronically signed by: Elton Norris M.D. 04/21/2019 11:14 AM Dictated: 04/21/19 1113 Transcribed: 04/21/19 1113 ECG Additional Comments: Study shows NSR at 68bpm, leftward axis, VX=849, QRS=90, PPf=965, slight ST depression in V4-V6, unchanged from prior Code Status & VTE Plan Code Status FULL VTE Prophylaxis Plan VTE Prophylaxis will be ordered: Yes PG Care Time/CCT Total # of Minutes Spent Total Time Spent with Patient: Total time spent is greater than 50% in coordination of care (as documented) at patient's floor/unit and/or counseling patient: (1) Diabetes Diabetes mellitus type: type 2 Diabetes mellitus terminal clerk insulin use: with terminal clerk use Diabetes mellitus complication status: without complication Qualified Code(s): E11.9 - Type 2 diabetes mellitus without complications; Z79.4 - assistant terminal manager (current) use of insulin (2) Hypertension Hypertension type: essential hypertension Qualified Code(s): I10 - Essential (primary) hypertension (3) Hypothyroid Hypothyroidism type: unspecified Qualified Code(s): E03.9 - Hypothyroidism, unspecified (4) PE (pulmonary embolism) Pulmonary embolism type: unspecified Chronicity: unspecified Acute cor pulmonale presence: unspecified Qualified Code(s): I26.99 - Other pulmonary embolism without acute cor pulmonale
[2019-04-21] MEDS ORDERED: LABETALOL HCL IV 5 MG/ML 20ML IV PRN (20:05)
[2019-04-21] MEDS: INSULIN GLARGINE SOLOSTAR 100 UNITS/ML 3 ML PEN SC SCH (21:05)
[2019-04-21] MEDS: CARVEDILOL 25 MG TAB PO SCH (21:06)
[2019-04-21] MEDS: IRBESARTAN 150 MG TAB PO SCH (21:06)
[2019-04-21] MEDS: ACETAMINOPHEN 325 MG TAB PO SCH (21:06)
[2019-04-21] MEDS: TRAMADOL HCL 50 MG TABLET PO SCH (21:07)
[2019-04-22] MEDS: LEVOTHYROXINE SODIUM 88 MCG TABLET PO SCH (06:08)
[2019-04-22] MEDS: CARVEDILOL 25 MG TAB PO SCH ×2 (08:37→20:00)
[2019-04-22] MEDS: ASPIRIN 81 MG ECTAB PO SCH (08:37)
[2019-04-22] MEDS: AMLODIPINE BESYLATE 5 MG TAB PO SCH (08:37)
[2019-04-22] MEDS: INSULIN GLARGINE SOLOSTAR 100 UNITS/ML 3 ML PEN SC SCH ×2 (08:38→20:11)
[2019-04-22] MEDS: TRAMADOL HCL 50 MG TABLET PO SCH ×2 (08:39→20:02)
[2019-04-22] MEDS: ACETAMINOPHEN 325 MG TAB PO SCH ×2 (08:39→20:00)
--- NOTE | 2019-04-22 09:29 | Cardiology Consultation ---
Date of Consultation April 22, 2019 Assessment & Plan (1) Chest pain, exertional: She has exertional chest discomfort which is classic for angina with chest pressure and radiation to her neck. This is only occurring with exertion, it did not start it until this fall when she started walking in the cold. Has another classic presentation for angina. She has had no rest pain in her cardiac enzymes are negative, her electrocardiogram is slightly abnormal although in a nonspecific way. We could do a stress test, however with the classic nature of her symptoms, her multiple risk factors of hypercholesterolemia, hypertension, diabetes mellitus and a strong family history as well as her age I think we should move directly to catheterization. If the stress test is negative for ischemia would be suspicious that it was a false negative and therefore a catheterization would be the preferred approach. I discussed this with her and she is agreeable. She has been n.p.o. so I will arrange that for today. (2) Hypertension: She has quite significant hypertension, we should try to get that in control. She has had a history of symptomatic bradycardia, she is on high-dose carvedilol (25 mg twice a day) and her heart rate has not been low here in the hospital. She is also on high-dose irbesartan and low-dose amlodipine. (3) Anticoagulant long-term use: She is on warfarin for a history of pulmonary emboli many years ago (by the record here 1999), her INR was 2.2 (therapeutic) yesterday. I will check another one today. If this interferes with her catheterization it should be relatively safe to give her vitamin K today and postpone the catheterization until tomorrow. I will review that with the humanities division chair during the catheterization. History of Present Illness Reason for Consultation: Exertional chest pain Attending Physician: Rhett Webster History of Present Illness This is a very pleasant 84-year-old woman who lives at [facility] and has a history of diabetes, hypercholesterolemia and hypertension. From the cardiovascular standpoint however she has not had a lot of symptoms. She has a very strong family history of heart disease with both of her parents dying of heart disease but she has not had prior cardiovascular symptoms. For the last several weeks she has noticed exertional chest discomfort, this occurred now that the weather is cold and when she walks to the dining [place]ant[place] at [facility] she has noticed exertional chest discomfort. She has not had rest discomfort, the episodes occur when she walks in the cold up a mild grade, she has had perhaps 3 episodes last week all with walking and another episode yesterday with exertion. The episodes last several minutes, she describes it as a substernal chest discomfort with some radiation to her neck, no arm radiation, no palpitations, no lightheadedness and no shortness of breath. She reports years ago that she did have some dyspnea on exertion but that has not been a problem lately. Of note she had a pulmonary embolism in 1999 and she has been maintained on warfarin, her INR was 2.2 yesterday and her Coumadin was held. I do not see one for today, I will order that. Here in the hospital she has had no further chest discomfort and cardiac enzymes are negative. She tells me that she had a electrocardiogram done at [facility] which she was told was different than her prior, here she does have inferior T wave inversion and slight ST depression. Her kidney function is normal and she has been n.p.o. Allergies Allergy/AdvReac Type Severity Reaction Status Date / Time Cipro Allergy Severe NAUSEA Unverified 03/09/16 12:18 lisinopril Allergy Mild Unknown Verified 04/21/19 20:08 latex Allergy Unknown rash Verified 04/21/19 13:07 ciprofloxacin AdvReac Severe NAUSEA Unverified 04/21/19 20:08 metronidazole AdvReac Severe NAUSEA Unverified 04/21/19 20:08 clavulanic acid AdvReac Unknown sick Verified 04/21/19 20:08 Home Medications Home Medications Medication Instructions Recorded Confirmed Type acetaminophen [Tylenol Arthritis 650 mg PO BID 04/21/19 04/21/19 History Pain] amlodipine 5 mg PO QAM 04/21/19 04/21/19 History carvedilol 25 mg PO BID 04/21/19 04/21/19 History insulin aspart U-100 [Novolog 0 unit SUBCUT QID 04/21/19 04/21/19 History Flexpen U-100 Insulin] insulin glargine [Lantus Solostar 38 unit SUBCUT BID 04/21/19 04/21/19 History U-100 Insulin] irbesartan 300 mg PO HS 04/21/19 04/21/19 History levothyroxine 88 mcg PO QAM 04/21/19 04/21/19 History metformin 1,000 mg PO BID 04/21/19 04/21/19 History simvastatin 40 mg PO QDD 04/21/19 04/21/19 History tramadol 50 mg PO BID 04/21/19 04/21/19 History warfarin 5 mg PO HS 04/21/19 04/21/19 History Patient History Medical History Diabetes (Acute) PE (pulmonary embolism) (Chronic) 2000 Hypertension Hypothyroid Surgical History History of cholecystectomy History of tonsillectomy Family History Other No significant family history Social History Preferred Language: Lithuanian Communication Ability: Effective Aircraft Loadmaster Superintendent Required: No Beliefs That Will Affect Care: None Current Living Situation: Personal Care Facility Current Living Situation Comment: [facility] Other Information That Helps Us Care for You: No Feels Safe at Home: Yes Safety Concerns: Feels Safe At This Time Smoking Status: Former smoker Hx Alcohol Use: Yes Alcohol type: wine Hx Substance Use: No Review of Systems Review of Systems: All systems reviewed & are unremarkable except as noted in HPI & below Physical Exam Physical Exam: Constitutional: Alert, cooperative and in no distress. HEENT: Unremarkable Neck: No jugular venous distention, carotid pulses are normal and equal bilaterally without bruits. Pulmonary: Clear to auscultation bilaterally. Cardiac: Regular rhythm with no murmur, gallop or rub. Abdomen: Soft, nontender with normal bowel sounds. Extremities: No edema. Distal pulses intact. Neurologic: No focal findings. Gait is steady. Skin: No rash, ecchymoses or petechiae. Results & Data Vital Signs (Past 12 Hours) Vital Signs Temp Pulse Resp BP BP Pulse Ox 04/22/19 06:43 36.6 C 64 18 150/74 H 95 04/22/19 03:48 36.4 C L 66 20 137/66 97 04/21/19 23:19 36.5 C 65 18 117/69 95 04/21/19 22:36 117/67 Diagnostic Findings I reviewed her electrocardiogram on admission, that demonstrates sinus rhythm with inferior ST-T abnormalities. No acute changes. I do not have a direct comparison available at this time. PG Care Time/CCT Total # of Minutes Spent Total Time Spent with Patient: Total time spent is greater than 50% in coordination of care (as documented) at patient's floor/unit and/or counseling patient: (1) Hypertension Hypertension type: essential hypertension Qualified Code(s): I10 - Essential (primary) hypertension
[2019-04-22] MEDS ORDERED: AMLODIPINE BESYLATE 5 MG TAB PO ONE (09:40)
[2019-04-22 10:37] LABS: INR 1.6 (0.9-1.1); Prothrombin Time 15.9 Seconds (9.0-12.0)
[2019-04-22] MEDS ORDERED: HEPARIN (PORCINE) 1000 UNIT/ML 10 ML (CATH LAB USE ONLY) ONE (15:25)
[2019-04-22] MEDS ORDERED: NiCARDipine HCL INJ 2.5 MG/ML 10 ML AMP ONE (15:25)
[2019-04-22] MEDS ORDERED: MIDAZOLAM HCL 1 MG/ML 2ML VIAL ONE ×2 (15:26→16:04)
[2019-04-22] MEDS ORDERED: fentaNYL citrate 100 MCG/2 ML VIAL ONE (15:26)
[2019-04-22] MEDS ORDERED: NITROGLYCERIN/D5W 100MCG/ML 20ML SYR ONE (15:27)
[2019-04-22] MEDS ORDERED: CLOPIDOGREL BISULFATE 300 MG TAB ONE (16:23)
--- NOTE | 2019-04-22 16:24 | Pre Anesthesia Assessment ---
Date of Service April 22, 2019 Pre Sedation Assessment Vital Signs Temp Pulse Pulse Resp BP BP Pulse Ox 04/22/19 14:54 69 04/22/19 11:49 98.4 F 65 18 135/72 94 04/22/19 10:23 66 144/73 H 04/22/19 08:00 62 04/22/19 06:43 97.9 F 64 18 150/74 H 95 04/22/19 03:48 97.5 F L 66 20 137/66 97 04/21/19 23:19 97.7 F 65 18 117/69 95 04/21/19 22:36 117/67 04/21/19 20:00 98.1 F 71 18 177/87 H 96 Cardiovascular RRR, no murmur, no edema Respiratory normal respiratory effort, lungs clear to auscultation Pre-Sedation Airway Assessment Smoking Status: Former smoker Hx Sleep Apnea: No Hx Difficult Intubation: No Short, Thick Neck: No Thyromental Distance: > or= 3.5 Finger Breadths Oral Cavity: + Dentures Mallampati Class: III ASA: ASA3 NPO Status Date of Last Intake of Fluids: 04/21/19 Time of Last Intake of Fluids: 20:00 Date of Last Intake of Solid Food: 04/21/19 Time of Last Intake of Solid Foods: 20:00 Procedure Planning Contraindications for Sedation: none Current Medications Reviewed: Yes Notes The planned sedation has been discussed with the patient. Informed Consent was obtained. I have identified the patient, determined the appropriateness of sedation and have assessed the patient immediately prior to the procedure. All medicine(s) and interventions are by my order.
--- NOTE | 2019-04-22 16:26 | Post Anesthesia Assessment ---
Date of Service April 22, 2019 Post Sedation Assessment Vital Signs Temp Pulse Pulse Resp BP BP Pulse Ox 04/22/19 14:54 69 04/22/19 11:49 98.4 F 65 18 135/72 94 04/22/19 10:23 66 144/73 H 04/22/19 08:00 62 04/22/19 06:43 97.9 F 64 18 150/74 H 95 04/22/19 03:48 97.5 F L 66 20 137/66 97 04/21/19 23:19 97.7 F 65 18 117/69 95 04/21/19 22:36 117/67 04/21/19 20:00 98.1 F 71 18 177/87 H 96 Recovery Score Activity: Moves 4 extremities Respiration: Deep Breath/Cough Circulation: +/-20% PreAnes Value Consciousness: Fully Awake Oxygen Saturation: > 92% On Room Air Discharge Sedation Level of Care: Fast Track Phase II Post Sedation Plan On clinical assessment, the patient appears to have tolerated the sedation without complications. Patient is recovering as anticipated. Patient will continue to be monitored by nursing and may be discharged when sedation discharge criteria are met per below protocol. Upon Completions of procedure and additional 15 minutes continue every 5 minute vital signs and the P.A.R. score; then discharge to a Phase I or Fast Track to Phase II per the following guidelines: * Discharge Patient to appropriate Phase II area if PAR is 8 or greater or return to pre- procedure baseline. The post - procedure orders will be as directed. * If PAR score is less than 8 or not return to pre-procedure baseline then patient will follow Phase I monitoring till PAR is reached for Phase II. The Phase I may be done in procedure room or may call to secure a Phase I area. * If naloxone or flumazenil are used for reversal, hold in Phase I for continued monitoring from when last reversal dose was given for a minimum of 60 minutes or longer pending the nurse and/or physician discretion of patient condition before discharge to Phase II. Please call the Sedation Physician to re-evaluate and complete post-note for discharge to Phase II area. Do NOT discharge from procedure sedation or Phase 1 until post- sedation evaluation note is complete by procedure /sedation MD Sedation Discharge Instructions to be given to the patient at discharge to home.
--- NOTE | 2019-04-22 16:32 | Cardiac Catheterization ---
[facility] Data: Craps Manager Cardiac Status Clinical evaluation leading to the procedure CAD Presenation: Unstable angina Anginal Classification: CCS III Heart Failure: No Cardiogenic Shock within 24 Hours: No Cardiac Arrest within 24 Hours: No Imaging Studies Past 6 Months: Yes Stress Studies Past 6 Months: No Diagnostic Physicians Name: Satnam Adam MD Status: Elective Closure Device Percutaneous Entry Location: Radial Closure Device: Radial Band Recommendations: PCI without planned CABG PCI Indication: Angina despite med therapy and Unstable Angina Lesion Segment Name: mid RCA Culprit Artery: Yes Stenosis Prior to Rx (%): 99 Chronic Total Occlusion: No IVUS: No FFR: No Pre-Procedure KENNEDY Flow: 3 Previously Treated Lesion: No Lesion Complexity: Non-High/Non-C Lesion Length (mm): 12 Thrombus Present: No Bifurcation Lesion: No Guidewire Across Lesion: Stenosis Post-Procedure (%): 0 Post-Procedure KENNEDY Flow: 3 Devices(s) Deployed: Yes Yes Intraprocedure Events Significant Disection: No Perforation: No Cardiac Cath Procedure Full Procedure Date April 22, 2019 Pre-Procedure Diagnosis Pre-Procedure Diagnosis: Angina AUC Score AUC Score: 7 Post-Procedure Diagnosis Post-Procedure Diagnosis: Severe CAD, Successful PCI and Normal Intracardiac Pressures Procedure(s) Performed Procedure(s) Performed: Coronary Angiography, Left Heart Cath and Drug Eluting Stent Dry Cleaning Counter Clerk Satnam Adam MD Dress Operator(s) [place] Estimated Blood Loss Estimated Blood Loss: 10 Medication(s) Medication(s): Clopidogrel, Fentanyl, Heparin, Lidocaine 1%, Nicardipine, Nitroglycerin and Versed Summary of Findings Indication: Accelerating angina Access: 6 Fr right radial artery Catheters: [place], JR4, JR4 guide Findings: LM -moderate caliber vessel, luminal irregularities, calcified at ostium LAD -moderate caliber vessel, 40 to 50% mid segment stenosis, mid to distal vessel tortuous with luminal irregularities prior to wrapping around apex. Septals provide faint left to right collaterals to PDA. Gives off 3 diagonals without significant disease. Circumflex -moderate caliber vessel, luminal irregularities. Large high first OM without significant disease. RCA -calcified aortic cusp, dominant, large caliber vessel, 99% mid RCA stenosis. Right PDA with competitive flow. Terminal PLB without significant disease. LVEDP -7 -- PCI -- Antithrombotic therapy: Heparin, clopidogrel Procedure: Left main cannulated with EBU 3.5 guide [employer] 50 wire passed across lesion into distal vessel Mid RCA lesion predilated with 2.5 compliant balloon Dilated lesion stented with 3.5 x 18 mm [place] drug-eluting stent Stent post-dilated with 3.5 noncompliant balloon IC vasodilators administered for spasm Post procedure KENNEDY 3 flow, stent well expanded with minimal residual stenosis and no apparent cardiac complications. Arterial Closure: TR band Summary: 1. Severe single vessel coronary artery disease -99% mid RCA 40 to 50% mid LAD 2. Normal intracardiac filling pressure 3. Successful PCI of mid RCA with single drug-eluting stent (3.5 x 18 mm [place]). Recommendations: To PCU for continued monitoring Loaded with clopidogrel 600 mg in laboratory chemical assistant Continue dual-antiplatelet therapy for at least 6 months Continue statin, and ASCVD risk factor modification Consult cardiac Rehab Hemodynamics Rest Ao:: 137/55/90 Final Ao: 135/48/87 LV: 156/7 Recommendations Recommendations: PCI without planned CABG Specimens Specimens: None Radiation Exposure (mGy) 1350 Contrast (mls) 90 Fluids (cc crystalloids) Fluids (cc crystalloids): 59 Drains Drains: None Anesthesia Moderate Procedural Complication(s) None Disposition PCU I attest to the content of the Intraoperative Record and any orders documented therein. Any exceptions are noted below.
[2019-04-22] MEDS ORDERED: SODIUM CHLORIDE 0.9% 1000ML 1,000 ML IV SCH (17:00)
[2019-04-22] MEDS: SIMVASTATIN 40 MG TAB PO SCH (17:47)
[2019-04-22] MEDS: IRBESARTAN 150 MG TAB PO SCH (20:00)
--- NOTE | 2019-04-22 22:50 | Hospitalist Progress Note ---
Date of Service April 22, 2019 Assessment & Plan (1) Chest pain, exertional: Patient with three weeks of exertional chest discomfort, relieved with rest. Pain increasing in severity and intensity over the last three weeks. No pain at rest. Troponin x 2 negative, EKG with stable changes. Patient with history of HTN, DM. No known CAD. Suspect angina as source of chest discomfort. She is high risk by HEART score. -ASA 81mg po daily -Continue Simvastatin 40mg po daily -Continue Carvedilol 25mg po BID -Continue Irbesartan -Cardiology consultation appreciated cardiac cath Summary: 1. Severe single vessel coronary artery disease -99% mid RCA 40 to 50% mid LAD 2. Normal intracardiac filling pressure 3. Successful PCI of mid RCA with single drug-eluting stent (3.5 x 18 mm [place]). Recommendations: To PCU for continued monitoring Loaded with clopidogrel 600 mg in lab support service tech Continue dual-antiplatelet therapy for at least 6 months Continue statin, and ASCVD risk factor modification Consult cardiac Rehab - (2) Diabetes: Patient with DM-II, well controlled on home medications. Last AIC 04/11/19 = 6.9. Patient is to take Lantus 38u BID - she reports some low blood sugars in the morning. States that she does not take her evening Lantus appx 50% of the time. -Lantus 15u BID -ISS -Adjust as needed to maintain blood sugar 100 - 140 -Hold Metformin (3) Hypertension: Blood pressure elevated at 177/87. Asymptomatic -Continue Irbesartan -Continue Carvedilol -Labetalol 10mg IV q 4 hours as needed -Continue to monitor (4) Hypothyroid: Chronic. TSH=0.765 on 04/11/19 -Continue Synthroid (5) PE (pulmonary embolism): Patient with history of bilateral PE in 1999. Presently on Coumadin therapy. Subtherapeutic INR = 2.2 today. She denies CP, SOB -Hold Coumadin for now for possible cath -INR in AM F/E/N - Heplock. Monitor electrolytes and replete as needed. NPO after midnight Ppx - Coumadin Code - Full Dispo - Observation to PCU Subjective Patient has no new symptoms. Tolerated cardiac cath. Review of Systems Review of Systems: All systems reviewed & are unremarkable except as noted in HPI & below Physical Exam Physical Exam: General: patient resting comfortably, NAD, non-toxic in appearance, AA&O to self Skin: warm, dry, intact, no rashes or lesions HEENT: NC/AT, PERRL, EOMI, anicteric sclera, conjunctiva without injection, external ear normal to inspection and nontender, nares patent, moist mucus membranes, dentition intact, no oropharyngeal lesions, neck supple, trachea midline, no LAD, no thyromegaly, no JVD Heart: +S1/S2, regular, no m/r/g Lungs: equal air entry bilaterally, no rales/rhonchi/wheezes Abd: +BS, soft, NT/ND, no masses/organomegaly/ascites Ext: warm, 2+ pulses in UE/LE bilaterally, no clubbing/cyanosis or edema Neuro: nonfocal, patient AA&O to self, speech intact, no facial droop, moving all extremities on command with equal strength 5/5 Results & Data Vital Signs (Past 12 Hours) Vital Signs Temp Pulse Pulse Resp BP Pulse Ox 04/22/19 19:50 36.7 C 04/22/19 19:00 37.0 C 77 22 142/79 H 93 04/22/19 18:41 91 H 18 142/79 H 95 04/22/19 18:30 98 H 18 129/73 94 04/22/19 18:05 71 18 169/84 H 96 04/22/19 17:45 79 18 153/81 H 95 04/22/19 17:30 77 18 161/80 H 95 04/22/19 17:15 70 18 155/73 H 94 04/22/19 17:00 71 18 137/68 93 04/22/19 16:45 36.4 C L 67 83 18 137/68 93 04/22/19 16:35 72 18 170/82 H 96 04/22/19 16:30 72 18 166/80 H 96 04/22/19 16:25 82 18 170/85 H 96 04/22/19 14:54 69 04/22/19 11:49 36.9 C 65 18 135/72 94 PG Care Time/CCT Total # of Minutes Spent Total Time Spent with Patient: Total time spent is greater than 50% in coordination of care (as documented) at patient's floor/unit and/or counseling patient: (1) Diabetes Diabetes mellitus complication status: without complication Diabetes mellitus fpc insulin use: with superintendent container terminal use Diabetes mellitus type: type 2 Qualified Code(s): E11.9 - Type 2 diabetes mellitus without complications; Z79.4 - terminal operations manager (current) use of insulin (2) Hypothyroid Hypothyroidism type: unspecified Qualified Code(s): E03.9 - Hypothyroidism, unspecified (3) PE (pulmonary embolism) Acute cor pulmonale presence: unspecified Chronicity: unspecified Pulmonary embolism type: unspecified Qualified Code(s): I26.99 - Other pulmonary embolism without acute cor pulmonale (4) Hypertension Hypertension type: essential hypertension Qualified Code(s): I10 - Essential (primary) hypertension
[2019-04-23] MEDS: LEVOTHYROXINE SODIUM 88 MCG TABLET PO SCH (06:13)
[2019-04-23 06:46] LABS: INR 1.2 (0.9-1.1); Prothrombin Time 12.5 Seconds (9.0-12.0)
[2019-04-23] MEDS: AMLODIPINE BESYLATE 5 MG TAB PO SCH (08:45)
[2019-04-23] MEDS: CARVEDILOL 25 MG TAB PO SCH (08:45)
[2019-04-23] MEDS: ASPIRIN 81 MG ECTAB PO SCH (08:45)
[2019-04-23] MEDS: TRAMADOL HCL 50 MG TABLET PO SCH (08:46)
[2019-04-23] MEDS: ACETAMINOPHEN 325 MG TAB PO SCH (08:46)
[2019-04-23] MEDS: INSULIN GLARGINE SOLOSTAR 100 UNITS/ML 3 ML PEN SC SCH (08:47)
[2019-04-23] MEDS ORDERED: CLOPIDOGREL BISULFATE 75 MG TAB PO SCH (09:00)
--- NOTE | 2019-04-23 09:22 | Cardiology Progress Note ---
Date of Service April 23, 2019 Assessment & Plan (1) Chest pain, exertional: She had classic exertional angina, she had a subtotal right coronary artery stenosis which is now been treated. We will need to watch for recurrence, this likely will take care of the pain. (2) Hypertension: She has quite significant hypertension, we should try to get that in control. She has had a history of symptomatic bradycardia, she is on high-dose carvedilol (25 mg twice a day) and her heart rate has not been low here in the hospital. She is also on high-dose irbesartan and low-dose amlodipine. I have not adjusted her medications but over the long run we probably should try to get her blood pressure under better control. 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 If she needs anticoagulation warfarin does carry a higher bleeding risk overall than the newer agents which should be adequate for her history of DVT and pulmonary emboli. I would consider using Eliquis (her dose would be 5 mg twice daily) rather than warfarin but I will leave that up to the primary service and Dr. George. (4) CAD (coronary artery disease): Although she has not had documented coronary artery disease in the past she does have risk factors and we need to modify her risk factors as much as possible to minimize the risk of recurrence. She is on 40 mg of simvastatin daily, I am going to switch this to 40 mg of atorvastatin and consider increasing to 80 mg in the future. This should improve her prognosis. We should also try to control her blood pressure over the long run, she should try to lose weight and perhaps follow a healthier diet. She needs to continue with aspirin and Plavix, at least for 1 year following her stent placement. Subjective She is feeling well today with no further chest discomfort. She has no discomfort at her catheterization site in her wrist. She had a good night sleep and feels well today. Physical Exam Physical Exam: Constitutional: Alert, cooperative and in no distress. Pulmonary: Clear to auscultation bilaterally. Cardiac: Regular rhythm with no murmur, gallop or rub. Abdomen: Soft, nontender with normal bowel sounds. Extremities: No edema. Skin: No rash, ecchymoses or petechiae. Results & Data Vital Signs (Past 12 Hours) Vital Signs Temp Pulse Resp BP BP Pulse Ox 04/23/19 06:57 36.6 C 70 20 158/78 H 98 04/23/19 03:16 36.3 C L 63 20 144/75 H 96 04/22/19 23:15 36.6 C 64 20 113/63 95 Laboratory Results Abnormal lab results 04/22/19 04/22/19 04/22/19 Range/Units 10:06 11:40 20:10 PT 15.9 H (9.0-12.0) Seconds INR 1.6 H (0.9-1.1) POC Glucose 112 H 212 H (70-99) 04/23/19 04/23/19 Range/Units 06:04 08:47 PT 12.5 H (9.0-12.0) Seconds INR 1.2 H (0.9-1.1) POC Glucose 233 H (70-99) Diagnostic Findings Telemetry: Sinus rhythm, rate generally in the 60s. No significant arrhythmia. PG Care Time/CCT Total # of Minutes Spent Total Time Spent with Patient: Total time spent is greater than 50% in coordination of care (as documented) at patient's floor/unit and/or counseling patient: (1) Hypertension Hypertension type: essential hypertension Qualified Code(s): I10 - Essential (primary) hypertension
[2019-04-23] MEDS ORDERED: ATORVASTATIN 40 MG TAB PO SCH (21:00)
--- NOTE | 2019-04-24 07:47 | Discharge Summary ---
Date of Service April 23, 2019 Admission HPI Per Admitting Provider Laura Allen is an 84yo C female with history of HTN, DM, PE in the past on Coumadin anticoagulation presenting with chest pain. Her chest discomfort began 3 weeks ago - she noted a substernal and upper chest heaviness which occurred intermittently with exertion and was relieved within moments of rest. She saw her PCP regarding this complaint and an echocardiogram was ordered - not yet completed, scheduled for this . Last week she noted that the heaviness was increasing in frequency and becoming more intense. She woke this morning and was getting ready to go to bible study at [facility] - she was walking down the hill to where the bible study was being held and she began to develop severe chest heaviness, progressed to pain radiating into her neck with associated SOB. She denies dizziness/diaphoresis/LOC. She was seen immediately by Dr. George and had an EKG which suggested some ST changes suggestive of ischemia. She received 324mg of ASA and was subsequently sent to the ER for further workup. Patient with no recent history of CP prior to 3 weeks ago. She is fairly active and walks a lot. She has had stress testing in the past which was negative by patient report. No prior cardiac catheterizations. No known CAD, stents, CHF or arrhythmia. Additionally patient denies fevers/chills/SOB/cough/nausea/vomiting/abdominal pain/diarrhea or constipation. No additional complaints at this time. Patient presently with no chest heaviness or discomfort. No palpitations or SOB. Principal Diagnosis Coronary artery disease Discharge Exam General: patient resting comfortably, NAD, non-toxic in appearance, AA&O to self Skin: warm, dry, intact, no rashes or lesions HEENT: NC/AT, PERRL, EOMI, anicteric sclera, conjunctiva without injection, external ear normal to inspection and nontender Heart: +S1/S2, regular, no m/r/g Lungs: equal air entry bilaterally, no rales/rhonchi/wheezes Abd: +BS, soft, NT/ND, no masses/organomegaly/ascites Ext: warm, 2+ pulses in UE/LE bilaterally, no clubbing/cyanosis or edema Neuro: nonfocal, patient AA&O to self, irritable affect, speech intact, no facial droop, moving all extremities Discharge Data Allergies Allergy/AdvReac Type Severity Reaction Status Date / Time Cipro Allergy Severe NAUSEA Unverified 03/09/16 12:18 lisinopril Allergy Mild Unknown Verified 04/21/19 20:08 latex Allergy Unknown rash Verified 04/21/19 13:07 ciprofloxacin AdvReac Severe NAUSEA Unverified 04/21/19 20:08 metronidazole AdvReac Severe NAUSEA Unverified 04/21/19 20:08 clavulanic acid AdvReac Unknown sick Verified 04/21/19 20:08 Consultations 04/21/19 11:28 ED Decision to Admit Stat 04/21/19 15:05 Consult Cardiology Routine 04/22/19 16:55 Consult Cardiac Rehabilitation Routine Procedures Performed Operation Date: 04/22/19 12:00 Actual Procedures p Cath, Left with Cors and Vent - Gene Adam MD s Cineradiography w/Routine Exam - Gene Adam MD s Drug Eluting Stent SGl Vessel - Gene Adam MD Ordered Studies 04/22/19 13:15 CL Cath Imgs for PACS use only Routine Hospital Course (1) Chest pain, exertional: Patient with three weeks of exertional chest discomfort, relieved with rest. Pain increasing in severity and intensity over the last three weeks. No pain at rest. Troponin x 2 negative, EKG with stable changes. Patient with history of HTN, DM. No known CAD. Suspect angina as source of chest discomfort. She is high risk by HEART score. -Cardiology consultation appreciated cardiac cath Summary: 1. Severe single vessel coronary artery disease -99% mid RCA 40 to 50% mid LAD 2. Normal intracardiac filling pressure 3. Successful PCI of mid RCA with single drug-eluting stent (3.5 x 18 mm Sawyer). 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 Coupon given to patient for first 30 days. If medicine is too expensive may switch back over to coumadin. Cardio switched to atorvastatin, goal of LDL is below 70. LDL already at 50 prior to this switch. May consider switching back to simvastatin if patient develops side effects. Patient though wanted to follow cardio recommendations and switch to atorvastatin. Continue dual antiplatelet therapy as stated above. (2) Diabetes: Patient with DM-II, well controlled on home medications. Last AIC 04/11/19 = 6.9. Patient is to take Lantus 38u BID - she reports some low blood sugars in the morning. States that she does not take her evening Lantus appx 50% of the time. will resume to home medication dose. (3) Hypertension: Blood pressure elevated at 177/87. Asymptomatic -Continue Irbesartan -Continue Carvedilol -Labetalol 10mg IV q 4 hours as needed -Continue to monitor (4) Hypothyroid: Chronic. TSH=0.765 on 04/11/19 -Continue Synthroid (5) PE (pulmonary embolism): Patient with history of bilateral PE in 1999. Presently on Coumadin therapy. Subtherapeutic INR = 2.2 today. She denies CP, SOB -Hold Coumadin for now for possible cath -INR in AM F/E/N - [place]. Monitor electrolytes and replete as needed. NPO after midnight Ppx - Coumadin Total Time Total Time Spent Total Time Spent (In Minutes): 32 Total Time Includes: Examination of the Patient, Discharge Planning and Medication Reconciliation Discharge Plan Discharge Items Patient Disposition: Home - Self-Care Reason For Visit: CHEST PAIN Discharge Diagnosis: chest pain Activity: Resume your previous activity Non-emergency contact: Primary Care Provider Call non-emergency contact if: you have any medication questions Follow-up/Referrals: Berna Rainey [Primary Care Provider] - Diet: Regular Addtl Attending Provider Instructions: Followup with Cardiology: in about 1 month Pending Studies at Discharge: No Stand-Alone Forms: My [facility] [place], Smoking Cessation Medications and DC Order Prescriptions: New atorvastatin 40 mg Tablet 40 mg PO QPM Qty: 30 RF: 0 clopidogrel 75 mg Tablet 75 mg PO QAM Qty: 30 RF: 0 aspirin [Ecotrin Low Strength] 81 mg Tablet,Delayed Release (Dr/Ec) 81 mg PO QAM Qty: 30 RF: 0 Eliquis 5 mg tablet See Rx Instructions .ROUTE .COMPLEX Qty: 74 RF: 0 Continued amlodipine 5 mg tablet 5 mg PO QAM RF: 0 carvedilol 25 mg tablet 25 mg PO BID RF: 0 levothyroxine 88 mcg tablet 88 mcg PO QAM RF: 0 metformin 500 mg tablet extended release 24 hr 1,000 mg PO BID RF: 0 irbesartan 300 mg tablet 300 mg PO HS RF: 0 Novolog Flexpen U-100 Insulin 100 unit/mL (3 mL) insulin pen subcut QID RF: 0 Lantus Solostar U-100 Insulin 100 unit/mL (3 mL) insulin pen 38 unit subcut BID RF: 0 tramadol 50 mg tablet 50 mg PO BID RF: 0 acetaminophen [Tylenol Arthritis Pain] 650 mg Tablet Extended Release 650 mg PO BID RF: 0 Discontinued simvastatin 40 mg tablet 40 mg PO QDD RF: 0 warfarin 5 mg tablet 5 mg PO HS RF: 0 Discharge Orders: Discharge Order (Routine); Ordered 04/23/19 Ordered By: Rhett Webster Admission Data Admit Date/Time: 04/22/19 23:30 Attending Provider: Rhett Webster Admit Provider: Kavya Mosqueda Primary Care Provider: Berna Rainey Other Providers: Kavya Mosqueda ; Glenn Hoskins Other Interventions: Discharge Summary Assessment (RN) Last Done: 04/23/19 15:58 DC Date/Time DO NOT enter until pt leaves facility: 04/23/19 16:14
--- NOTE | 2019-04-24 08:00 | Communication Note ---
Date of Service: April 23, 2019 On a side note: patient was visibly upset that she was seen around 3 pm as she wanted to be discharged earlier in the day. After apologizing, I explained to the patient that more urgent cases required my attention earlier today. But now that I was in the room, she will have my full attention.
== END 2019-04-23 16:14 | disposition home or self-care (01) | DRG 229 ==
LOC: 2S 10:38 → ED 10:38 → SUATTDRO 13:29 → 2S 14:52

== ENCOUNTER 2021-08-27 21:13 | Inpatient (IN) ==
[2021-08-27] MEDS ORDERED: ONDANSETRON INJ 2 MG/ML 2 ML VIAL IV STA (21:29)
[2021-08-27] MEDS ORDERED: STAT IV Infusion **Titration per Protocol STA (21:29)
[2021-08-27] MEDS ORDERED: ONDANSETRON INJ 2 MG/ML 2 ML VIAL ONE (21:30)
[2021-08-27] MEDS ORDERED: niCARdipine 25 MG in SODIUM CHLORIDE 0.9% 240 ML IV SCH (21:30)
[2021-08-27 21:36] LABS: Basophils # (auto) 0.04 K/uL (0-0.2); Basophils % (auto) 0.7 %; Eosinophils # (auto) 0.32 K/uL (0-0.5); Eosinophils % (auto) 5.9 %; Hematocrit (blood only) 39.6 % (37-47); Hemoglobin 12.7 g/dL (12.0-16.0); Immature Granulocytes # (auto) 0.04 K/uL (0.00-0.02); Immature Granulocytes % (auto) 0.7 %; Lymphocytes # (auto) 1.53 K/uL (1.2-3.4); Lymphocytes % (auto) 28.4 %; Mean Corpuscular Hemoglobin 30.2 pg (25-34); Mean Corpuscular Hgb Conc 32.1 g/dL (32-36); Mean Corpuscular Volume 94.1 fL (80-100); Mean Platelet Volume 9.1 fL (7.4-10.4); Monocytes # (auto) 0.46 K/uL (0.11-0.59); Monocytes % (auto) 8.6 %; Neutrophils # (auto) 2.99 K/uL (1.4-6.5); Neutrophils % (auto) 55.7 %; Platelet Count 199 K/uL (130-400); RDW Coefficient of Variation 13.8 % (11.5-14.5); RDW Standard Deviation 47.1 fL (36.4-46.3); Red Blood Count 4.21 M/uL (4.2-5.4); White Blood Count 5.38 K/uL (4.8-10.8)
[2021-08-27] MEDS ORDERED: PROTHROMBIN COMP CONC- KCENTRA 2,000 UNITS in SYRINGE 0 ML IV ONE (21:45)
[2021-08-27 21:49] LABS: Partial Thromboplastin Ratio 0.8; Partial Thromboplastin Time 22.6 Seconds (21.0-31.0); Prothrombin Time 10.6 Seconds (9.0-12.0)
[2021-08-27 21:58] LABS: Alanine Aminotransferase 14 U/L (7-52); Albumin Globulin Ratio 1.3 (0.9-2); Alkaline Phosphatase 44 U/L (34-104); Anion Gap 7 (3-11); Aspartate Aminotransferase 14 U/L (13-39); BUN Creatinine Ratio 20.2 (10-20); Bilirubin,Total 0.3 mg/dl (0.2-1.0); Blood Urea Nitrogen 25 mg/dl (6-23); Calcium 8.7 mg/dl (8.5-10.1); Carbon Dioxide 25 mmol/L (21-32); Chloride 102 mmol/L (98-107); Creatinine Clr Calc Pharmacy 36.1 ml/min; Est GFR (African American) 45.2 ml/min; Globulin 3.1 gm/dl (2.5-4.0); Glucose 141 mg/dl (70-99(Fasting)); Magnesium 1.7 mg/dl (1.7-2.4); Sodium 134 mmol/L (136-145); Total Protein 7.1 gm/dl (6.0-8.3); Troponin I < 0.03 ng/ml (0-0.04)
--- NOTE | 2021-08-27 22:07 | Emergency Department Note ---
Impression & Plan Cerebrovascular accident, hemorrhagic, Pulmonary edema, Headache ED Provider Note NAME: JOHN SPANN AGE: 86 SEX: F : 1935 ARRIVES VIA: Ambulance INFORMANT: Patient, EMS, the patient's significant other ED PROVIDER(S): Glenn Hannah DO CHIEF COMPLAINT: Headache and strokelike symptoms HPI: The patient is an 86-year-old female who presented to the emergency department from a personal skilled nursing for an evaluation of strokelike symptoms. The patient was made a stroke alert prior to arrival. I received a prehospital notification about the patient. Apparently between 730 and 8 PM this evening she developed a very severe headache. Her alerted staff at the personal-skilled nursing because she started having left-sided weakness. The patient was noted to have very elevated blood pressure prior to arrival. She has a history of coronary artery disease as well as venous thromboembolic disease. She takes Eliquis as well as Plavix. According to her she has been compliant with her usual medications. She started having nausea and vomiting. She was taken directly to CT after she was made a stroke alert. The patient herself denies having any chest pain. Her speech is somewhat slurred and is dif ficult to completely understand the patient according to her significant other she is not had any complaints prior to the onset of the symptoms. She denied having any chest pain or difficulty breathing. ROS: See above HPI for pertinent positives & negatives. A total of 10 systems reviewed and were otherwise negative. PAST MEDICAL HISTORY: See Below PAST SURGICAL HISTORY: See Below FAMILY HISTORY: See Below SOCIAL HISTORY: See Below HOME MEDICATIONS: See Below ALLERGIES: See Below VITALS: See Below PHYSICAL EXAMINATION: GENERAL: The patient is in extremis. She is slurring her words and slow to answer questions. EYES: The conjunctivae are clear. There is ptosis noted on the right eye. The right pupil was dilated and minimally reactive to light. EARS, NOSE, MOUTH AND THROAT: The nose is without any evidence of any deformity. NECK: The neck is nontender and supple. RESPIRATORY: Diminished breath sounds are noted throughout with rales. Shallow respirations were noted. CARDIOVASCULAR: Regular rate and rhythm noted there no murmurs rubs or gallops normal S1 normal S2. GASTROINTESTINAL: The abdomen is soft. Abdomen is nontender. MUSCULOSKELETAL/EXTREMITIES: There is no evidence of gross deformity full range of motion is noted in the hips and shoulders. SKIN: Skin was warm and dry. Trace pedal edema was noted bilaterally. NEUROLOGIC: Patient is awake to verbal commands. She does follow commands and is able to squeeze my fingers with her right hand. She has significant weakness in the left upper and lower extremity. She has a left-sided facial droop. Speech is very slurred. She does not have a gaze preference. MEDICAL DECISION MAKING: The patient is an 86-year-old female who presented to emergency department for an evaluation of strokelike symptoms. The patient had a very high INH score. There is concerned that she may have a large vessel occlusion or possibly an intracranial hemorrhage prior to arrival. The patient was made a stroke alert and went directly to CT. While in CT the patient was found to have a very large intracerebral hemorrhage. I discussed the patient's laboratory and radiographic studies with her . I discussed her condition with her son Mark as well. I discussed her case with the stroke neurologist at [facility] as well as the neurosurgeon. Given the findings on CT the patient is a very poor surgical candidate and will likely not do well. I discussed this with the patient's significant other. At this time I do feel the patient would not benefit from transfer. The patient was also discussed with the on-call [facility] hospitalist. The patient was given Kcentra for reversal of oral anticoagulation. He was also treated with IV antihypertensive medication given her significant elevation in blood pressure. She appears have signs of pulmonary edema on chest x-ray which is likely neurogenic in nature. She was placed on supplemental oxygen. Triage Nursing notes reviewed. Prior medical records reviewed Vital Signs: reviewed and remarkable for initial hypertension. Differential diagnosis: Infection, dehydration, metabolic abnormality, hypo/hyperglycemia, electrolyte disturbance, anemia, hypoxia, cardiac sources, intracerebral event, toxicologic, neurologic, as well as other pathologies. ER treatment provided: See below Diagnostics interpreted by me: ECG: EKG was obtained in the emergency department. My interpretation is normal sinus rhythm at 74 bpm. There is no ectopy. There is no acute ST segment abnormalities noted. Cardiac Monitoring: An order was placed for continuous cardiac monitoring. The monitor shows a rate of 90 bpm with sinus rhythm. Laboratory studies: As stated above and show below. Imaging studies: See below Consultation(s): I discussed this case with Dr. Pond who was the telestroke neurologist. After the CT the head was obtained week consulted the neurosurgeon at [facility]. I discussed this case with Dr. Hernandez who is on-call for the neurosurgical group at [facility]. After reviewing the patient's CT findings he does not feel that she would be a candidate for neurosurgical intervention. I discussed this case with Dr. Mittal she has agreed to order Kcentra for the patient. Discussed this case with Dr. Carson who is on-call for the [facility] hospitalist group. ED COURSE: Procedures: none Critical Care: I have personally spent greater than 65 minutes of critical care time in the direct management of this patient. This includes bedside care, interpretation of diagnostic studies, and testing, discussion with consultants, patient, and family members, and other required patient management activities. This 65 minutes is in excess of all separately billable procedures. Past Med/Surg History Medical History Back problem CAD (coronary artery disease) CKD (chronic kidney disease) Diabetic neuropathy DM type 2 (diabetes mellitus, type 2) Glaucoma History of DVT (deep vein thrombosis) DURING TRAVEL -YRS AGO -WAS PRIOR TO BILATERAL PE - PT CANNOT REMEMBER WHEN History of fall 2 FALLS EARLY 2020 - HX CONCUSSION - SCANS AT [facility] History of skin cancer SEVERAL HLD (hyperlipidemia) Hypertension Hypothyroid Lumbar spinal stenosis PE (pulmonary embolism) 1999 ? , BILATERAL ...CONTINUES BLOOD THINNER Sleep apnea Weight loss OVER PAST YR - YR AND HALF, APPETITE CHANGES Surgical History History of cardiac catheterization 2018 [place] - 1 stent History of cholecystectomy History of colonoscopy History of tonsillectomy Family History Father Family history of diabetes mellitus Mother Family history of diabetes mellitus Sister Family history of diabetes mellitus Other Family history of colon cancer in mother No significant family history Social History Smoking Status: Unknown if ever smoked Second Hand Exposure: No; Preferred Language: Mongolian Organic Chemist Required: No Beliefs That Will Affect Care: Congregation Congregation Beliefs: QUAKER Current Living Situation Comment: resident at [facility] current occupation: retired Allergies Allergies Allergy/AdvReac Type Severity Reaction Status Date / Time lisinopril Allergy Severe FACE Verified 08/27/21 21:33 SWELLED UP latex Allergy Intermediate rash Verified 08/27/21 21:33 ciprofloxacin AdvReac Severe NAUSEA Verified 08/27/21 21:33 amoxicillin [From Augmentin] AdvReac Intermediate Nausea Verified 08/27/21 21:33 clavulanic acid AdvReac Intermediate Nausea Verified 08/27/21 21:33 [From Augmentin] metronidazole AdvReac Intermediate NAUSEA Verified 08/27/21 21:33 Home Meds Home Medications Medication Instructions Recorded Confirmed carvedilol 25 mg tablet 25 mg PO BID 04/21/19 08/27/21 insulin glargine 100 unit/mL (3 44 unit SUBCUT HS 04/21/19 08/27/21 mL) subcutaneous pen (Lantus Solostar U-100 Insulin) irbesartan 300 mg tablet 300 mg PO HS 04/21/19 08/27/21 levothyroxine 88 mcg tablet 88 mcg PO QAM 04/21/19 08/27/21 metformin 500 mg tablet,extended 1,000 mg PO BID 04/21/19 08/27/21 release 24 hr tramadol 50 mg tablet 50 mg PO TID 04/21/19 08/27/21 apixaban 5 mg tablet (Eliquis) 5 mg PO BID tab 05/08/19 08/27/21 acetaminophen 500 mg tablet 500 mg PO QID 06/15/21 08/27/21 cholecalciferol (vitamin D3) 50 50 mcg PO QAM 06/15/21 08/27/21 mcg (2,000 unit) capsule (Vitamin D3) clopidogrel 75 mg tablet (Plavix) 75 mg PO HS 06/15/21 08/27/21 insulin lispro 100 unit/mL 12 unit SUBCUT BID 06/15/21 08/27/21 subcutaneous pen (Humalog KwikPen (U-100) Insulin) insulin lispro 100 unit/mL 14 unit SUBCUT QPM 06/15/21 08/27/21 subcutaneous pen (Humalog KwikPen (U-100) Insulin) latanoprost 0.005 % eye drops 1 drp OPB HS 06/15/21 08/27/21 loperamide 2 mg tablet (Imodium 2 mg PO BID PRN 06/15/21 08/27/21 A-D) spironolactone 25 mg tablet 25 mg PO QAM 06/15/21 08/27/21 triamcinolone acetonide 0.1 % 1 applic TOPICAL DAILY PRN 06/15/21 08/27/21 topical cream ammonium lactate 12 % lotion 1 applic TOPICAL HS 08/27/21 08/27/21 atorvastatin 40 mg tablet 40 mg PO HS 08/27/21 08/27/21 hydrocortisone acetate 1 % topical 1 applic TOPICAL BID PRN 08/27/21 08/27/21 cream methocarbamol 500 mg tablet 500 mg PO Q8H PRN 08/27/21 08/27/21 Results & Data (ED) Vital Signs Vital Signs - 24 hr 08/27/21 21:31 08/27/21 21:33 08/27/21 21:35 Pulse Rate 81 78 73 Pulse Rate [Apical] Pulse Rate from SpO2 Sensor 75 79 Respiratory Rate 16 16 17 Blood Pressure 235/107 H 235/107 H Blood Pressure [Right Arm] Blood Pressure Mean 149 149 Blood Pressure Mean [Right Arm] Pulse Oximetry 91 89 L 95 Oxygen Delivery Method Room Air Oxygen Flow Rate Sepsis Recent Fever Within 48 Hours No Sepsis New/Unexplained Change in Mental Status No Sepsis Action Taken by Nursing No Action Required 08/27/21 21:45 08/27/21 21:46 08/27/21 21:57 Pulse Rate 86 79 Pulse Rate [Apical] Pulse Rate from SpO2 Sensor 82 80 Respiratory Rate 15 15 Blood Pressure 214/90 H Blood Pressure [Right Arm] Blood Pressure Mean 131 Blood Pressure Mean [Right Arm] Pulse Oximetry 97 94 92 Oxygen Delivery Method Room Air Oxygen Flow Rate 0 Sepsis Recent Fever Within 48 Hours Sepsis New/Unexplained Change in Mental Status Sepsis Action Taken by Nursing 08/27/21 21:59 08/27/21 22:00 08/27/21 22:14 Pulse Rate 72 74 Pulse Rate [Apical] 72 Pulse Rate from SpO2 Sensor 73 74 Respiratory Rate 15 13 16 Blood Pressure 171/87 H Blood Pressure [Right Arm] 214/90 H Blood Pressure Mean 115 Blood Pressure Mean [Right Arm] 131 Pulse Oximetry 95 96 98 Oxygen Delivery Method Room Air Oxygen Flow Rate Sepsis Recent Fever Within 48 Hours Sepsis New/Unexplained Change in Mental Status Sepsis Action Taken by Nursing 08/27/21 22:15 08/27/21 22:30 08/27/21 22:31 Pulse Rate 72 74 74 Pulse Rate [Apical] 72 Pulse Rate from SpO2 Sensor 71 75 75 Respiratory Rate 17 20 16 Blood Pressure 129/76 Blood Pressure [Right Arm] 171/87 H Blood Pressure Mean 93 Blood Pressure Mean [Right Arm] 115 Pulse Oximetry 96 91 91 Oxygen Delivery Method Room Air Oxygen Flow Rate Sepsis Recent Fever Within 48 Hours Sepsis New/Unexplained Change in Mental Status Sepsis Action Taken by Nursing 08/27/21 22:40 08/27/21 23:00 08/27/21 23:16 Pulse Rate 77 79 Pulse Rate [Apical] Pulse Rate from SpO2 Sensor Respiratory Rate 17 19 Blood Pressure 115/63 111/87 Blood Pressure [Right Arm] 164/83 H Blood Pressure Mean 80 95 Blood Pressure Mean [Right Arm] 110 Pulse Oximetry 96 95 Oxygen Delivery Method Room Air Room Air Oxygen Flow Rate Sepsis Recent Fever Within 48 Hours Sepsis New/Unexplained Change in Mental Status Sepsis Action Taken by Nursing 08/27/21 23:30 Pulse Rate 90 Pulse Rate [Apical] Pulse Rate from SpO2 Sensor Respiratory Rate 21 Blood Pressure 123/87 Blood Pressure [Right Arm] Blood Pressure Mean 99 Blood Pressure Mean [Right Arm] Pulse Oximetry 94 Oxygen Delivery Method Room Air Oxygen Flow Rate Sepsis Recent Fever Within 48 Hours Sepsis New/Unexplained Change in Mental Status Sepsis Action Taken by [facility] Medications Current Medication List: was personally reviewed by me Laboratory Data Attestation: I reviewed the patient's lab results. Result diagrams: 08/27/21 21:05 08/27/21 21:05 Lab Results 08/27/21 08/27/21 08/27/21 Range/Units 21:05 21:05 21:05 WBC 5.38 (4.8-10.8) K/uL RBC 4.21 (4.2-5.4) M/uL Hgb 12.7 (12.0-16.0) g/dL Hct 39.6 (37-47) % MCV 94.1 (80-100) fL MCH 30.2 (25-34) pg MCHC 32.1 (32-36) g/dL RDW Std Deviation 47.1 H (36.4-46.3) fL RDW Coeff of Orestes 13.8 (11.5-14.5) % Plt Count 199 (130-400) K/uL MPV 9.1 (7.4-10.4) fL Immature Gran % (Auto) 0.7 % Neut % (Auto) 55.7 % Lymph % (Auto) 28.4 % [place] % (Auto) 8.6 % Eos % (Auto) 5.9 % Baso % (Auto) 0.7 % Neut # (Auto) 2.99 (1.4-6.5) K/uL Lymph # (Auto) 1.53 (1.2-3.4) K/uL [place] # (Auto) 0.46 (0.11-0.59) K/uL Eos # (Auto) 0.32 (0-0.5) K/uL Baso # (Auto) 0.04 (0-0.2) K/uL Immature Gran # (Auto) 0.04 H (0.00-0.02) K/uL PT 10.6 (9.0-12.0) Seconds INR 1.0 (0.9-1.1) APTT 22.6 (21.0-31.0) Seconds PTT Ratio 0.8 Sodium 134 L (136-145) mmol/L Potassium 5.0 (3.5-5.1) mmol/L Chloride 102 (98-107) mmol/L Carbon Dioxide 25 (21-32) mmol/L Anion Gap 7 (3-11) BUN 25 H (6-23) mg/dl Creatinine 1.24 H (0.6-1.2) mg/dl Est Cr Clr Drug Dosing 36.1 ml/min Est GFR ( Amer) 45.2 ml/min Est GFR (Non-Af Amer) 39.0 ml/min BUN/Creatinine Ratio 20.2 H (10-20) Glucose 141 H (70-99(Fasting)) mg/dl POC Glucose (70-99) mg/dl Calcium 8.7 (8.5-10.1) mg/dl Magnesium 1.7 (1.7-2.4) mg/dl Total Bilirubin 0.3 (0.2-1.0) mg/dl AST 14 (13-39) U/L ALT 14 (7-52) U/L Alkaline Phosphatase 44 (34-104) U/L Troponin I < 0.03 (0-0.04) ng/ml Total Protein 7.1 (6.0-8.3) gm/dl Albumin 4.0 (3.4-5.0) gm/dl Globulin 3.1 (2.5-4.0) gm/dl Albumin/Globulin Ratio 1.3 (0.9-2) SARS-CoV-2, RNA, NAAT (NEGATIVE) 08/27/21 08/27/21 Range/Units 21:32 21:57 WBC (4.8-10.8) K/uL RBC (4.2-5.4) M/uL Hgb (12.0-16.0) g/dL Hct (37-47) % MCV (80-100) fL MCH (25-34) pg MCHC (32-36) g/dL RDW Std Deviation (36.4-46.3) fL RDW Coeff of Orestes (11.5-14.5) % Plt Count (130-400) K/uL MPV (7.4-10.4) fL Immature Gran % (Auto) % Neut % (Auto) % Lymph % (Auto) % [place] % (Auto) % Eos % (Auto) % Baso % (Auto) % Neut # (Auto) (1.4-6.5) K/uL Lymph # (Auto) (1.2-3.4) K/uL [place] # (Auto) (0.11-0.59) K/uL Eos # (Auto) (0-0.5) K/uL Baso # (Auto) (0-0.2) K/uL Immature Gran # (Auto) (0.00-0.02) K/uL PT (9.0-12.0) Seconds INR (0.9-1.1) APTT (21.0-31.0) Seconds PTT Ratio Sodium (136-145) mmol/L Potassium (3.5-5.1) mmol/L Chloride (98-107) mmol/L Carbon Dioxide (21-32) mmol/L Anion Gap (3-11) BUN (6-23) mg/dl Creatinine (0.6-1.2) mg/dl Est Cr Clr Drug Dosing ml/min Est GFR ( Amer) ml/min Est GFR (Non-Af Amer) ml/min BUN/Creatinine Ratio (10-20) Glucose (70-99(Fasting)) mg/dl POC Glucose 136 H (70-99) mg/dl Calcium (8.5-10.1) mg/dl Magnesium (1.7-2.4) mg/dl Total Bilirubin (0.2-1.0) mg/dl AST (13-39) U/L ALT (7-52) U/L Alkaline Phosphatase (34-104) U/L Troponin I (0-0.04) ng/ml Total Protein (6.0-8.3) gm/dl Albumin (3.4-5.0) gm/dl Globulin (2.5-4.0) gm/dl Albumin/Globulin Ratio (0.9-2) SARS-CoV-2, RNA, NAAT NEGATIVE (NEGATIVE) Administered Medications Nicardipine HCl 25 mg/ Sodium (Chloride) 250 mls @ 50 mls/hr IV .Q5H YANET; Protocol Stop: 09/26/21 21:29 Last Titration: 08/28/21 00:02 Dose: 0 mg/hr, 0 mls/hr Documented by: [id number] Titration: 08/27/21 23:36 Dose: 0 mg/hr, 0 mls/hr Documented by: [id number] Titration: 08/27/21 23:20 Dose: 2.5 mg/hr, 25 mls/hr Documented by: [id number] Admin: 08/27/21 21:49 Dose: 5 mg/hr, 50 mls/hr Documented by: [id number] Cosigned by: [id number] Discontinued Medications Prothrombin Complex Concent ( (Human) 2,000 units/ Syringe) 80 mls @ 10 mls/min IV NOW ONE; Protocol Stop: 08/27/21 21:52 Last Admin: 08/27/21 21:45 Dose: 10 mls/min Documented by: [id number] Ondansetron HCl (Ondansetron Inj 2 Mg/Ml 2 Ml Vial) 4 mg IV NOW STA Stop: 08/27/21 21:30 Last Admin: 08/27/21 21:37 Dose: 4 mg Documented by: [id number] Ondansetron HCl (Ondansetron Inj 2 Mg/Ml 2 Ml Vial) Confirm Administered Dose 4 mg .ROUTE .STK-MED ONE Stop: 08/27/21 21:31 Last Admin: 08/27/21 21:37 Dose: Not Given Documented by: [id number] Imaging Data Attestation: I personally reviewed and interpreted this imaging study as follows: My Impression: 1 view chest x-ray was obtained in the emergency department. My interpretation is cardiomegaly with vascular congestion consistent with pulmonary edema. There was some deviation to the left of the upper trachea. Radiologist's Impression: Patient: JOHN SPANN (Female) : 33 Status: ER Date: 08/27/21 21:42 Room #: History: stroke protocol Slices: 555 Priors: Tech: Alex Hanson @ [phone] Exams: CTA HEAD Contrast: IV Amt: 117 ml optiray Accession Numbers: [id number] Referring Physician: RADHA MUNROE Preliminary Findings Only See Final Report For Complete Findings CTA HEAD: Mass-effect, secondary to large right temporal intracranial hemorrhage. No spot sign, AVM, aneurysm or large vessel occlusion. Noncon Head CT also done, dictated separately. Radiologist: Kassy Lennon M.D. Study ready at 21:44 and initial results transmitted at 21:58 Communications: Clear Time Type Notes Call Doctor Stroke Patient: JOHN SPANN (Female) : 33 Status: ER Date: 08/27/21 21:41 Room #: History: stroke protocol Slices: 660 Priors: Tech: Alex Hanson @ [phone] Exams: CTA NECK Contrast: IV Amt: 117 ml optiray Accession Numbers: [id number] Referring Physician: RADHA MUNROE Preliminary Findings Only See Final Report For Complete Findings CTA NECK: Bilateral carotid bifurcation atherosclerosis, left greater than right. No dissection, significant stenosis or vessel occlusion. Moderate atherosclerosis. Pulmonary edema and CHF. Radiologist: Kassy Lennon M.D. Study ready at 21:44 and initial results transmitted at 21:55 Communications: Clear Time Type Notes Patient:JOHN SPANN (Female):33MRN:[id number] Status:ERDate:08/27/21 21:40Room #:History:stroke protocolSlic es:59Priors:Tech:Alex Hanson @ [phone]:CT HEAD Accession Numbers: [id number] Referring Physician: RADHA MUNROE Preliminary Findings Only See Final Report For Complete Findings CT HEAD: Large, lobular acute hemorrhage right temporal lobe measures 4 x 6.7 x 3.2 cm, 43 cc volume, may be larger, as there are small peripheral areas not included in the measurement. Mild adjacent subdural and subarachnoid hemorrhage, suggests probable amyloid angiopathy. Mass-effect with right uncal herniation and 13 mm [id number] midline shift. Ventriculomegaly left lateral ventricle may be due to atrophy, cannot rule out developing hydrocephalus. Radiologist:Kassy Lennon M.D. Study ready at 21:41 and initial results transmitted at 22:29 Communications: Clear [id number]/12/22 22:33Call DoctorRegarding Stroke, called Dr. Hannah on 08/27 22:32 (-05:00) Call Doctor Stroke Discharge Plan Visit Data Chief Complaint: Stroke Alert Stated Complaint: Stroke ED Provider: Glenn Hannah Discharge Problem: Cerebrovascular accident, hemorrhagic, Pulmonary edema, Headache Patient Disposition: Being Evaluated by Hospitalist Discharge Instructions Interventions: ED Discharge Assessment Last Done: 08/28/21 00:09 Forms Stand Alone Forms: [facility] Prescriptions Prescriptions: No Action Eliquis 5 mg tablet 5 mg PO BID RF: 0 carvedilol 25 mg tablet 25 mg PO BID RF: 0 levothyroxine 88 mcg tablet 88 mcg PO QAM RF: 0 metformin 500 mg tablet extended release 24 hr 1,000 mg PO BID RF: 0 irbesartan 300 mg tablet 300 mg PO HS RF: 0 Lantus Solostar U-100 Insulin 100 unit/mL (3 mL) insulin pen 44 unit subcut HS RF: 0 tramadol 50 mg tablet 50 mg PO TID RF: 0 methocarbamol [Robaxin] 500 mg Tablet 500 mg PO Q8H PRN (Reason: Back Pain) RF: 0 ammonium lactate 12 % Lotion 1 applic TOPICAL HS RF: 0 hydrocortisone acetate 1 % Cream 1 applic TOPICAL BID PRN (Reason: VAGINAL ITCH) RF: 0 atorvastatin 40 mg tablet 40 mg PO HS RF: 0 latanoprost 0.005 % Drops 1 drp OPB HS RF: 0 loperamide [Imodium A-D] 2 mg Tablet 2 mg PO BID PRN (Reason: Diarrhea) RF: 0 clopidogrel [Plavix] 75 mg Tablet 75 mg PO HS RF: 0 spironolactone 25 mg Tablet 25 mg PO QAM RF: 0 insulin lispro [Humalog KwikPen Insulin] 100 unit/mL Insulin Pen 12 unit SUBCUT BID RF: 0 insulin lispro [Humalog KwikPen Insulin] 100 unit/mL Insulin Pen 14 unit SUBCUT QPM RF: 0 acetaminophen 500 mg Tablet 500 mg PO QID RF: 0 triamcinolone acetonide 0.1 % Cream 1 applic TOPICAL DAILY PRN (Reason: Rash) RF: 0 cholecalciferol (vitamin D3) [Vitamin D3] 50 mcg (2,000 unit) Capsule 50 mcg PO QAM RF: 0 Referrals Referrals: Radha Munroe [Primary Care Provider] -
--- NOTE | 2021-08-27 22:23 | History & Physical Report ---
Date of Service August 27, 2021 Assessment & Plan (1) Intracerebral hemorrhage: Plan: Laura Allen is an 86-year-old female with PMH of HTN, hypothyroidism, CAD on ASA and Plavix, DVT/PE on Eliquis who arrived due to cute hemorrhagic stroke. Intracerebral hemorrhage Head imaging remarkable for large right temporal intraparenchymal hemorrhage, associated with subarachnoid and subdural hemorrhage, probable amyloid angiopathy. Significant mass-effect, uncal herniation, and midline shift. Telestroke contacted by ED provider and subsequently [facility] [place] contacted patient deemed not to be a surgical candidate Per discussion with patient's , she will be started on comfort measures Morphine as needed for pain/respiratory distress Ativan as needed for agitation Palliative care consulted Due to comfort measures, will hold all other medical treatment CODE STATUS: DNR/DNI Dispo: Admit to [facility] for comfort measures Diet: N.p.o. DVT prophylaxis: Not indicated History of Present Illness Primary Care Provider: [facility] Laura Allen is an 86-year-old female with PMH of HTN, hypothyroidism, CAD on ASA and Plavix, DVT/PE on Eliquis [facility]. Per , around 8PM this evening she developed severe headache and left- sided weakness, at which point he alerted [facility]. EMS was called and she was transferred via ambulance to our hospital. ED provider was made aware of her impending arrival. Upon arrival in ED, she had head CT as well as CTA head & neck--findings were significant for mass-effect, uncal herniation, and midline shift secondary to large right temporal intraparenchymal hemorrhage (43cc volume) associated with subarachnoid and subdural hemorrhage. Due to these findings, ED provider discussed case with telestroke neurologist, and subsequently [facility] neurosurgery, who deemed the patient not to be a surgical candidate. Patient received dose of Kcentra per Dr. Lepe. Patient's and son (Mark) were made aware of her not being a surgical candidate as well as the patient's poor prognosis. Apparently patient was initially somewhat responsive, able to answer some questions albeit with slurred speech, and following some simple commands per ED note. Upon my evaluation prior to admission, patient mumbled when I called her name, but was unable to follow any commands or provide any significant information. I discussed the findings with the patient's and answered questions to his satisfaction. At the time of my evaluation patient was hemodynamically stable and in no clear acute distress. Allergies Allergy/AdvReac Type Severity Reaction Status Date / Time lisinopril Allergy Severe FACE Verified 08/27/21 21:33 SWELLED UP latex Allergy Intermediate rash Verified 08/27/21 21:33 ciprofloxacin AdvReac Severe NAUSEA Verified 08/27/21 21:33 amoxicillin [From Augmentin] AdvReac Intermediate Nausea Verified 08/27/21 21:33 clavulanic acid AdvReac Intermediate Nausea Verified 08/27/21 21:33 [From Augmentin] metronidazole AdvReac Intermediate NAUSEA Verified 08/27/21 21:33 Home Medications Medication Instructions Recorded Confirmed Type carvedilol 25 mg tablet 25 mg PO BID 04/21/19 08/27/21 History insulin glargine 100 unit/mL (3 44 unit SUBCUT HS 04/21/19 08/27/21 History mL) subcutaneous pen (Lantus Solostar U-100 Insulin) irbesartan 300 mg tablet 300 mg PO HS 04/21/19 08/27/21 History levothyroxine 88 mcg tablet 88 mcg PO QAM 04/21/19 08/27/21 History metformin 500 mg tablet,extended 1,000 mg PO BID 04/21/19 08/27/21 History release 24 hr tramadol 50 mg tablet 50 mg PO TID 04/21/19 08/27/21 History apixaban 5 mg tablet (Eliquis) 5 mg PO BID tab 05/08/19 08/27/21 History acetaminophen 500 mg tablet 500 mg PO QID 06/15/21 08/27/21 History cholecalciferol (vitamin D3) 50 50 mcg PO QAM 06/15/21 08/27/21 History mcg (2,000 unit) capsule (Vitamin D3) clopidogrel 75 mg tablet (Plavix) 75 mg PO HS 06/15/21 08/27/21 History insulin lispro 100 unit/mL 12 unit SUBCUT BID 06/15/21 08/27/21 History subcutaneous pen (Humalog KwikPen (U-100) Insulin) insulin lispro 100 unit/mL 14 unit SUBCUT QPM 06/15/21 08/27/21 History subcutaneous pen (Humalog KwikPen (U-100) Insulin) latanoprost 0.005 % eye drops 1 drp OPB HS 06/15/21 08/27/21 History loperamide 2 mg tablet (Imodium 2 mg PO BID PRN 06/15/21 08/27/21 History A-D) spironolactone 25 mg tablet 25 mg PO QAM 06/15/21 08/27/21 History triamcinolone acetonide 0.1 % 1 applic TOPICAL DAILY PRN 06/15/21 08/27/21 Hist ory topical cream ammonium lactate 12 % lotion 1 applic TOPICAL HS 08/27/21 08/27/21 History atorvastatin 40 mg tablet 40 mg PO HS 08/27/21 08/27/21 History hydrocortisone acetate 1 % topical 1 applic TOPICAL BID PRN 08/27/21 08/27/21 History cream methocarbamol 500 mg tablet 500 mg PO Q8H PRN 08/27/21 08/27/21 History Past Med/Surg History Medical History Back problem CAD (coronary artery disease) CKD (chronic kidney disease) Diabetic neuropathy DM type 2 (diabetes mellitus, type 2) Glaucoma History of DVT (deep vein thrombosis) DURING TRAVEL -YRS AGO -WAS PRIOR TO BILATERAL PE - PT CANNOT REMEMBER WHEN History of fall 2 FALLS EARLY 2020 - HX CONCUSSION - SCANS AT [facility] History of skin cancer SEVERAL HLD (hyperlipidemia) Hypertension Hypothyroid Lumbar spinal stenosis PE (pulmonary embolism) 1999 ? , BILATERAL ...CONTINUES BLOOD THINNER Sleep apnea Weight loss OVER PAST YR - YR AND HALF, APPETITE CHANGES Surgical History History of cardiac catheterization 2018 [facility] stent History of cholecystectomy History of colonoscopy History of tonsillectomy Family History Father Family history of diabetes mellitus Mother Family history of diabetes mellitus Sister Family history of diabetes mellitus Other Family history of colon cancer in mother No significant family history Social History Smoking Status: Unknown if ever smoked Second Hand Exposure: No; Preferred Language: Hebrew Rent Collector Required: No Beliefs That Will Affect Care: Cheondoism Cheondoism Beliefs: MORAVIAN Current Living Situation Comment: resident at [facility] current occupation: retired Review of Systems Review of Systems: Unobtainable due to cognitive status Physical Exam Physical Exam: GENERAL: Overall diminished cognitive status, somnolent. Minimally responsive. HEENT: Ptosis of right eye. Bilateral pupillary dilation with no response to light. NECK: No JVD. No lymphadenopathy. CHEST/LUNGS: Respirations shallow. Diminished breath sounds at bases bilaterally. Rales bilaterally. HEART: RRR. No m/g/r. No carotid bruits. ABDOMEN: NT/ND, soft. BS+ x4. EXTREMITIES: No cyanosis, no clubbing. Trace edema BLE. SKIN: Warm and dry. No rashes or lesions. NEUROLOGIC: Patient is somnolent but mumbles when her name is called. Not following simple commands. Moves right arm and leg spontaneously, does not move extremities on left side. Results & Data Results & Data ([facility]) Vital Signs (Past 12 Hours) Vital Signs Pulse Pulse Resp BP BP Pulse Ox 08/27/21 22:15 72 15 171/87 H 96 08/27/21 21:59 72 15 214/90 H 95 08/27/21 21:46 94 08/27/21 21:35 73 17 235/107 H 95 Supervising Physician Co-Signing Physician Notes I supervised Jadiel Garcia MD on the care of this patient. I interviewed and examined the patient independently of him. The plan is as written in his note except for any following changes/exceptions: None 86yo F w/ hx of CAD who presents with hemorrhagic CVA. The patient is on Plavix and apixaban for prior VTE and CAD. She developed left-sided weakness, facial droop, and left-sided paralysis at home per . EMS was called. CT head rev ealed a large, right temporal lobe hemorrhage with midline shift. In the span of time in the ER, she went from following commands to obtunded and only mildly responding. On my assessment, GCS was 7 (no eye opening, incomprehensible sounds, and withdrawal from pain (on right side only)). In discussion with , he understands [facility] gave a grim prognosis and has decided to "let nature take its course" and move toward comfort measures. One son also in agreement who is alerting his siblings. Will make her comfort measures with medication for pain, shortness of breath, agitation, and secretions. Resident Activity Tracking Resident Involvement: Resident Care Provided Care Provided: Adult [facility] Medicine
[2021-08-28] MEDS ORDERED: LORazepam 2 MG/1 ML VIAL IV PRN (00:41)
[2021-08-28] MEDS ORDERED: ACETAMINOPHEN 650 MG SUPP PR PRN (00:41)
[2021-08-28] MEDS ORDERED: ONDANSETRON 4 MG OD TAB SL PRN (00:41)
[2021-08-28] MEDS ORDERED: chlorproMAZINE HCL 25 MG TAB PO PRN (00:41)
[2021-08-28] MEDS ORDERED: MoRPHine SULFATE 2 MG/ML CARP IV PRN ×2 (00:41→08:38)
[2021-08-28] MEDS: ONDANSETRON INJ 2 MG/ML 2 ML VIAL IV PRN ×2 (01:27→06:02)
--- NOTE | 2021-08-28 06:37 | Billing Data ---
Date of Service August 28, 2021 Coding Level of Care Code 99671 Initial Inpt Care Lvl 3
--- NOTE | 2021-08-28 06:56 | Hospitalist Progress Note ---
Date of Service August 28, 2021 Assessment & Plan (1) Intracerebral hemorrhage: Plan: Laura Allen is an 86-year-old female with PMH of HTN, hypothyroidism, CAD on ASA and Plavix, DVT/PE on Eliquis who arrived due to cute hemorrhagic stroke. Intracerebral hemorrhage Head imaging remarkable for large right temporal intraparenchymal hemorrhage, associated with subarachnoid and subdural hemorrhage, probable amyloid angiopathy. Significant mass-effect, uncal herniation, and midline shift. Telestroke contacted by ED provider and subsequently [facility] neuro[place] contacted patient deemed not to be a surgical candidate Per discussion with patient's , she will be started on comfort measures per admitting physician Ativan as needed for agitation Palliative care consulted Due to comfort measures, will hold all other medical treatment -As patients pain and discomfort has been difficult to control with PRN morphine alone, have transitioned patient to morphine gtt after shared decision making with the family. CODE STATUS: DNR/DNI - CLINICAL RESEARCH NURSE Dispo: Admit to [facility] for comfort measures Diet: N.p.o. DVT prophylaxis: Not indicated Admission and Anticipated Discharge Date Admission Date: August 27, 2021 Supervising Physician Co-Signing Physician Notes Resident Physician Supervision Note: I independently interviewed and examined the patient and verified the pritchard history and physical, reviewed labs and image studies and agree with resident Dr. Cedeño findings and care plan. Subjective Patient evaluated at the bedside. On initial assessment patient alone. Minimally responsive to voice or touch. She does appear tachypneic and mildly uncomfortable at this time. Discussed with nursing staff and it was noted patient has been slowly deteriorating through the morning. Was called to bedside later in the morning around 11AM as the patients had returned and was concerned about the current plan. He notes that he did not realize the implications of a DNR/DNI overnight and that he was unsure about resuscitation. His son, Victoriano ([phone]) had called at this well and participated in the conversation over the phone. This provider explained to the patients , Sunil, the current situation in regards to the previous night and current status of the patient. Upon further explanation Sunil was understanding of current goals of care and agreed that comfort measures, without resuscitation, were appropriate at this time. Victoriano also had a copy of Laura's advance directives and notes that they also state she would want to be comfortable and DNR/DNI in a life threatening situation. This provider discussed with Sunil about patient's worsening status and options in regards to pain control. At this time, both Sunil and Victoriano are in agreement that a morphine gtt be implemented to allow for better and more sustained control of patients respiratory and pain needs. Review of Systems Review of Systems: Unobtainable due to reduced consciousness Physical Exam Constitutional: + ill appearing and + in distress Respiratory: + labored breathing Auscultation: lungs clear to auscultation bilaterally Cardiovascular: Rate/Rhythm: + tachycardic Neurologic: + obtunded Results & Data Results & Data ([facility]) Vital Signs (Past 12 Hours) Vital Signs Pulse Pulse Resp BP BP Pulse Ox 08/28/21 00:42 20 191/80 H 96 08/27/21 23:30 90 21 123/87 94 08/27/21 23:16 79 19 111/87 95 08/27/21 23:00 77 17 115/63 96 08/27/21 22:40 164/83 H 08/27/21 22:31 74 16 129/76 91 08/27/21 22:30 74 20 91 08/27/21 22:15 72 72 17 171/87 H 96 08/27/21 22:14 74 16 171/87 H 98 08/27/21 22:00 72 13 96 08/27/21 21:59 72 15 214/90 H 95 08/27/21 21:57 79 15 214/90 H 92 08/27/21 21:46 94 08/27/21 21:45 86 15 97 08/27/21 21:35 73 17 235/107 H 95 08/27/21 21:33 78 16 235/107 H 89 L 08/27/21 21:31 81 16 91 Resident Activity Tracking Resident Involvement: Resident Care Provided Care Provided: Adult Hospital Medicine
[2021-08-28] MEDS: ATROPINE SULFATE 1% OP SOLN 5 ML BTL SL PRN ×5 (07:38→14:19)
--- NOTE | 2021-08-28 08:06 | CT Scan Report ---
HEAD CT NONCONTRAST CT DOSE: HISTORY: Weakness. Stroke Like Symptoms TECHNIQUE: Multiaxial CT images of the head were performed without the use of intravenous contrast. A utomated exposure control was utilized for this study. A dose lowering technique was utilized adheri ng to the principles of ALARA. Comparison: Head CT 12/17/2019. Head CT 11/30/2020. Findings: The paranasal sinuses and mastoid air cells are clear. There is a large right intraparenchy mal hematoma centered within the right temporal lobe and external capsule measuring 8.4 x 5.3 cm. Thi s also demonstrates a small subdural component measuring up to 5 mm in thickness. This results in sig nificant mass effect with near complete effacement of the right lateral ventricle and up to 1 cm left midline shift. There is surrounding vasogenic edema. Right-sided uncal herniation is noted against t he midbrain. Impression: An 8.4 x 5.3 cm right intraparenchymal hematoma centered within the right temporal lobe and external capsule with associated small subdural component. This results in 1 cm of left midline shift and righ t-sided uncal herniation. ACT 112: Negative or not required by law. Electronically signed by: Jerman Garcia M.D. 08/28/2021 8:04 AM
--- NOTE | 2021-08-28 08:23 | CT Scan Report ---
HEAD & NECK CTA HISTORY: Intracranial hemorrhage. Stroke Like Symptoms TECHNIQUE: Multiaxial CT images of the head were performed following the intravenous administration o f contrast to evaluate the major cerebral vessels. Multiaxial CT images of the neck were also perform ed following the intravenous administration of contrast to evaluate the major cervical vessels. Maxim um intensity projection images were also obtained. A dose lowering technique was utilized adhering to the principles of ALARA. COMPARISON: Head CT 08/27/2021. FINDINGS: Large right temporal intraparenchymal hematoma and a small right subdural hematoma are again noted. T hese results in up to 1 cm left midline shift and significant mass effect with near complete effaceme nt of the right lateral ventricle. No active arterial extravasation identified or arteriovenous malfo rmation. Moderate calcified plaque within the bilateral carotid siphons. Mass effect along the right MCA and right ANIMAL CONTROL SUPERVISOR. Visualized intracranial internal carotid arteries, distal vertebral arteries, and basilar artery are widely patent. There is no significant stenosis, occlusion, or aneurysm seen withi n the bilateral ACAs, MCAs, or community marketing manager. The aortic arch and proximal great vessels are widely patent. There is no significant stenosis, occ lusion, or dissection identified within the bilateral common carotid, internal carotid, or vertebral arteries. Interlobular septal thickening and groundglass densities in the lung apices likely represen ting pulmonary edema. Calcified plaque within the aortic arch and bilateral carotid bifurcations. IMPRESSION: 1. No significant stenosis, occlusion, or aneurysm within the [place]. However, there is mas s effect along the right cerebral arteries due to the large right intraparenchymal hematoma which is better appreciated on the same day head CT. 2. No significant stenosis, occlusion, or dissection identified within the carotid or vertebral arter ies. 3. Pulmonary edema. ACT 112: Negative or not required by law. Electronically signed by: Jerman Garcia M.D. 08/28/2021 8:21 AM
--- NOTE | 2021-08-28 08:23 | CT Scan Report ---
HEAD & NECK CTA HISTORY: Intracranial hemorrhage. Stroke Like Symptoms TECHNIQUE: Multiaxial CT images of the head were performed following the intravenous administration o f contrast to evaluate the major cerebral vessels. Multiaxial CT images of the neck were also perform ed following the intravenous administration of contrast to evaluate the major cervical vessels. Maxim um intensity projection images were also obtained. A dose lowering technique was utilized adhering to the principles of ALARA. COMPARISON: Head CT 08/27/2021. FINDINGS: Large right temporal intraparenchymal hematoma and a small right subdural hematoma are again noted. T hese results in up to 1 cm left midline shift and significant mass effect with near complete effaceme nt of the right lateral ventricle. No active arterial extravasation identified or arteriovenous malfo rmation. Moderate calcified plaque within the bilateral carotid siphons. Mass effect along the right MCA and right COTTON WRINGER. Visualized intracranial internal carotid arteries, distal vertebral arteries, and basilar artery are widely patent. There is no significant stenosis, occlusion, or aneurysm seen withi n the bilateral ACAs, MCAs, or document restorer. The aortic arch and proximal great vessels are widely patent. There is no significant stenosis, occ lusion, or dissection identified within the bilateral common carotid, internal carotid, or vertebral arteries. Interlobular septal thickening and groundglass densities in the lung apices likely represen ting pulmonary edema. Calcified plaque within the aortic arch and bilateral carotid bifurcations. IMPRESSION: 1. No significant stenosis, occlusion, or aneurysm within the [place]. However, there is mas s effect along the right cerebral arteries due to the large right intraparenchymal hematoma which is better appreciated on the same day head CT. 2. No significant stenosis, occlusion, or dissection identified within the carotid or vertebral arter ies. 3. Pulmonary edema. ACT 112: Negative or not required by law. Electronically signed by: Jerman Garica M.D. 08/28/2021 8:21 AM
--- NOTE | 2021-08-28 09:29 | XRay Report ---
XR chest 1V portable HISTORY: 86 years-old Female Stroke Like Symptoms acute strokelike symptoms COMPARISON: Chest radiograph 04/21/2019, CTA neck 08/28/2011 TECHNIQUE: Portable AP view of the chest FINDINGS: Cardiac silhouette is enlarged. Pulmonary vascular congestion with interstitial coarsening. Trace ple ural effusions. No pneumothorax or lobar airspace consolidation. Degenerative changes of the shoulder s and spine. IMPRESSION: 1. Cardiomegaly with pulmonary edema. 2. Trace pleural effusions. ACT 112: Negative or not required by law. The above report was generated using voice recognition software. It may contain grammatical, syntax o r spelling errors. Electronically signed by: Alcides Cain M.D. 08/28/2021 9:28 AM
[2021-08-28] MEDS ORDERED: STAT IV Infusion **Titration per Protocol STA (11:09)
[2021-08-28] MEDS ORDERED: MoRPHine SULF/NSS 250 MG/250 ML BTL IV SCH (11:15)
--- NOTE | 2021-08-28 12:05 | Electrocardiogram Report ---
Test Reason : Blood Pressure : / mmHG Vent. Rate : 074 BPM Atrial Rate : 074 BPM P-R Int : 182 ms QRS Dur : 096 ms QT Int : 406 ms P-R-T Axes : 063 -08 055 degrees QTc Int : 450 ms Normal sinus rhythm Normal ECG When compared with ECG of 22-APR-2019 17:28, Nonspecific T wave abnormality no longer evident in Inferior leads Confirmed by Brett Mckeon ([id number]) on 08/28/2021 12:04:57 PM Referred By: Berna Rainey Confirmed By:Brett Mckeon
[2021-08-28] MEDS: GLYCOPYRROLATE 0.2 MG/ML VIAL IV PRN (18:07)
[2021-08-29] MEDS: GLYCOPYRROLATE 0.2 MG/ML VIAL IV PRN (03:47)
--- NOTE | 2021-08-29 05:51 | Hospitalist Progress Note ---
Date of Service August 29, 2021 Assessment & Plan (1) Intracerebral hemorrhage: Plan: Laura Allen is an 86-year-old female with PMH of HTN, hypothyroidism, CAD on ASA and Plavix, DVT/PE on Eliquis who presented to [facility] with an acute hemorrhagic stroke. She is now SPOT WASHER status after extensive discussions with family. Intracerebral Hemorrhage -- given severity of hemorrhage and poor prognosis, patient is now SPOT WASHER Head imaging remarkable for large right temporal intraparenchymal hemorrhage, associated with subarachnoid and subdural origins -- probable amyloid angiopathy. Significant mass-effect, uncal herniation, and midline shift. Telestroke initiated and [facility] consulted by ED provider patient deemed not to be a surgical candidate Per discussion with patient's and son: initiate SPOT WASHER given poor prognosis Palliative care consulted Ativan as needed for agitation Morphine gtt initiated given [id number] pain/discomfort with PRN dosing Hold all other medical treatment CODE STATUS: DNR/DNI - SPOT WASHER Dispo: MedSurg for comfort measures Diet: N.p.o. DVT prophylaxis: Contraindicated with SPOT WASHER and ICH Admission and Anticipated Discharge Date Admission Date: August 27, 2021 Results & Data Results & Data ([facility]) Vital Signs (Past 12 Hours) Vital Signs Resp 08/29/21 04:51 14 Resident Activity Tracking Resident Involvement: Resident Care Provided Care Provided: Adult Hospital Medicine
--- NOTE | 2021-08-29 08:30 | Death Pronouncement Note ---
Date of Service August 29, 2021 Pronouncement Note Admission Date Admission Date: August 27, 2021 Date and Time of Date of : 08/29/21 Time of : 08:12 PCOD Preliminary cause of : Hemorrhagic cerebrovascular accident (CVA) Contributing Factors (1) Intracerebral hemorrhage: Contributing factors: History of DVT on anticoagulation HTN Summary Additional details: I was called to pronounce the of Ms. Laura Allen ( [id number]) by her nurse on 08/29/2021. Upon entering the room, patient was found to be in a terminal state. They were unresponsive to, and did not withdrawal from, verbal or tactile stimuli. They were unresponsive to corneal, pupillary, and oculocephalic reflexes. On cardiopulmonary exam, they were found to be without detectable carotid pulses, and without spontaneous heart tones or respirations. Time of was pronounced by me on 08/29/2021 at 08:12 AM. Attending physician was notified was notified. Next of kin was notified by RN. Signed: Nemesio Benites MD Additional Data Confirmation of : no pulse, no respirations, no heart sounds and pupils fixed and dilated Family: attempt made Attending/PCP notified?: Yes Attending physician: Nemesio Travis, DO Was code activated?: No Resident Activity Tracking Resident Involvement: Resident Care Provided Care Provided: Adult Hospital Medicine
--- NOTE | 2021-08-29 08:36 | Discharge Summary ---
Date of Service August 29, 2021 Admission HPI Per Admitting Provider Laura Allen is an 86-year-old female with PMH of HTN, hypothyroidism, CAD on ASA and Plavix, DVT/PE on Eliquis who arrived tonight due to acute stroke. Per , around 8PM this evening she developed severe headache and left- sided weakness, at which point he alerted the staff at his personal assisted. EMS was called and she was transferred via ambulance to our hospital. ED provider was made aware of her impending arrival. Upon arrival in ED, she had head CT as well as CTA head & neck--findings were significant for mass-effect, uncal herniation, and midline shift secondary to large right temporal intraparenchymal hemorrhage (43cc volume) associated with subarachnoid and subdural hemorrhage. Due to these findings, ED provider discussed case with telestroke neurologist, and subsequently [facility] neurosurgery, who deemed the patient not to be a surgical candidate. Patient received dose of Kcentra per Dr. Lepe. Patient's and son (Mark) were made aware of her not being a surgical candidate as well as the patient's poor prognosis. Apparently patient was initially somewhat responsive, able to answer some questions albeit with slurred speech, and following some simple commands per ED note. Upon my evaluation prior to admission, patient mumbled when I called her name, but was unable to follow any commands or provide any significant information. I discussed the findings with the patient's and answered questions to his satisfaction. At the time of my evaluation patient was hemodynamically stable and in no clear acute distress. Admission Exam Per Admitting Provider GENERAL: Overall diminished cognitive status, somnolent. Minimally responsive. HEENT: Ptosis of right eye. Bilateral pupillary dilation with no response to light. NECK: No JVD. No lymphadenopathy. CHEST/LUNGS: Respirations shallow. Diminished breath sounds at bases bilaterally. Rales bilaterally. HEART: RRR. No m/g/r. No carotid bruits. ABDOMEN: NT/ND, soft. BS+ x4. EXTREMITIES: No cyanosis, no clubbing. Trace edema BLE. SKIN: Warm and dry. No rashes or lesions. NEUROLOGIC: Patient is somnolent but mumbles when her name is called. Not following simple commands. Moves right arm and leg spontaneously, does not move extremities on left side. Principal Diagnosis hemorrhagic stroke Discharge Exam General: Ill-appearing, but comfortable, 86-year-old female who is not responsive to verbal, tactile stimuli. Cardiac: Normal rate, regular rhythm, S1 and S2 are present without murmurs rubs or gallops Pulmonary: Auscultation of upper airway secretions appreciated. Diminished lung sounds throughout both lungs. Discharge Data Allergies Allergy/AdvReac Type Severity Reaction Status Date / Time lisinopril Allergy Severe FACE Verified 08/27/21 21:33 SWELLED UP latex Allergy Intermediate rash Verified 08/27/21 21:33 ciprofloxacin AdvReac Severe NAUSEA Verified 08/27/21 21:33 amoxicillin [From Augmentin] AdvReac Intermediate Nausea Verified 08/27/21 21:33 clavulanic acid AdvReac Intermediate Nausea Verified 08/27/21 21:33 [From Augmentin] metronidazole AdvReac Intermediate NAUSEA Verified 08/27/21 21:33 Consultations 08/27/21 22:05 ED Decision to Admit Stat Ordered Studies 08/27/21 21:12 CT angio head w con Stat CT angio neck with con Stat IMPRESSION: 1. No significant stenosis, occlusion, or aneurysm within the [place]. However, there is mass effect along the right cerebral arteries due to the large right intraparenchymal hematoma which is better appreciated on the same day head CT. 2. No significant stenosis, occlusion, or dissection identified within the carotid or vertebral arteries. 3. Pulmonary edema. CT head/brain wo con Stat An 8.4 x 5.3 cm right intraparenchymal hematoma centered within the right temporal lobe and external capsule with associated small subdural component. This results in 1 cm of left midline shift and right-sided uncal herniation. Hospital Course (1) Intracerebral hemorrhage: Laura Allen is an 86-year-old female with PMH of HTN, hypothyroidism, CAD on ASA and Plavix, DVT/PE on Eliquis who presented to [facility] with an acute hemorrhagic stroke. After extensive discussions with the family, patient was transitioned to comfort measures and peacefully on 08/29/2021 at 0814 AM. Intracerebral Hemorrhage -- given severity of hemorrhage and poor prognosis, patient is now [employer] Head imaging remarkable for large right temporal intraparenchymal hemorrhage, associated with subarachnoid and subdural origins -- probable amyloid angiopathy. Significant mass-effect, uncal herniation, and midline shift. Telestroke initiated and [facility] consulted by ED provider patient deemed not to be a surgical candidate Per discussion with patient's and son: initiated [employer] given poor prognosis Ativan given as needed for agitation Morphine gtt was initiated earlier in course given [id number] pain/discomfort with PRN dosing Total Time Total Time Spent Total Time Spent (In Minutes): 20 Discharge Plan Discharge Items Patient Disposition: Discharge Diagnosis: hemorrhagic stroke Addtl Attending Provider Instructions: See note Other Date/Time: 08/29/21 08:12 Supervising Physician Co-Signing Physician Notes chart reviewed, case d/w Dr Benites. pt passed this morning prior to my having seen her. was on comfort care as related to ICH. as above. Resident Activity Tracking Resident Involvement: Resident Care Provided Care Provided: Adult Hospital Medicine
== END 2021-08-29 14:00 | disposition expired | DRG 64 ==
LOC: ED 21:13 → 3E 23:02 → SUATTDRO 23:02 → 3E 08-28 00:09